=== PATIENT | male | born 1950 | race Caucasian/White ===

== ENCOUNTER 2016-01-19 07:09 | Outpatient (RCR) | payer MEDICARE, OTHER ==
--- OUTSIDE RECORDS SUMMARY | 2016-01-14 14:55 | XMS REPORT | Continuity of Care Document ---
Author Author [facility] Organization [facility] Address Unknown Phone Unavailable Care Team Providers Care Counter Attendant Name Role Phone AASHISH CEDENO MD PCP Insurance Providers Payer Name Policy Number Subscriber Name Relationship Wps Medicare [id number] Jen Hennessy 18 Self / Same As Patient Comm Crossover Enter Ins Name [id number] Jen Hennessy 18 Self / Same As Patient Advance Directives Directive Response Recorded Date/Time Advance Directives No 12/19/15 9:40am Health Care Power of Feed Mill Supervisor No 12/19/15 9:40am Organ Donor No 12/19/15 9:40am Resuscitation Status Full Code 12/19/15 9:40am Problems Active Problems Medical Problem Onset Date Status Generalized weakness Unknown Acute Postoperative pain Unknown Acute Ureteral stone with hydronephrosis Unknown Acute Medications Current Home Medications Medication Dose Units Route Directions Days/Qty Instructions Start Date Bimatoprost 2.5 Ml 2 Drops Each Eye Bedtime 07/17/13 Tamsulosin Hcl 0.4 Mg 0.4 Mg Oral Daily 14 12/17/15 Cephalexin 500 Mg 500 Mg Oral Three Times A Day 12/17/15 Hydrocodone/Acetaminophen 1 Each 1 Each Oral Every 6 Hours 12/17/15 Past Home Medications Medication Directions Ordered Status Omeprazole 20 Mg Capsule.dr, 0 Mg Oral Daily@07 07/18/13 Discontinued Hydrocodone/Acetaminophen 1 Each Tablet, 1-2 Each Oral Every 6 Hours Discontinued Sulfamethoxazole/Trimethoprim 1 Each Tablet, 1 Each Oral Twice A Day Discontinued Social History Social History Problem Response Recorded Date/Time Alcohol Use Denies Use 07/05/2015 4:53pm Recreational Drug Use No 07/05/2015 4:53pm Recent Foreign Travel No 07/17/2013 3:13pm Recent Infectious Disease Exposure No 07/17/2013 3:13pm Hospitalization with Isolation Denies 07/18/2013 11:40am Sexually Transmitted Disease No 12/19/2015 9:40am HIV/AIDS No 12/19/2015 9:40am Smoking Status Former Smoker 12/19/2015 9:40am Do you dip or chew tobacco? No 07/05/2015 4:53pm Recent Hopitalizations No 12/19/2015 9:40am Sexually Transmitted Disease No 12/19/2015 9:40am Hospitalization with Isolation Denies 07/18/2013 11:40am Query Response Start Date Stop Date Smoking Status Former Smoker 07/25/1967 Hospital Discharge Instructions No hospital discharge instructions. Plan of Care Discharge Date 12/19/15 10:10am Prescriptions See Medication Section Functional Status No functional status results. Allergies, Adverse Reactions, Alerts Allergen Type Severity Reaction Status Last Updated Epinephrine Allergy Severe ANAPHYLAXIS Active 07/03/15 Immunizations No immunization records. Vital Signs Acute Vital Signs Vital Response Date/Time Temperature (Fahrenheit) 97.2 degrees F (97.6 - 99.5) 12/17/2015 4:05pm Temperature (Calculated Celsius) 36.62578 degrees C (36.4 - 37.5) 12/17/2015 4:05pm Pulse Rate (adult) 60 bpm (60 - 90) 12/19/2015 9:40am Respiratory Rate 18 bpm (12 - 24) 12/17/2015 6:30pm O2 Sat by Pulse Oximetry 93 % (88 - 100) 12/19/2015 9:40am Blood Pressure 142/85 mm Hg 12/19/2015 9:40am Blood Pressure Mean 104 mm Hg 12/19/2015 9:40am Pain Numeric Pain Scale 0-No Pain 12/19/2015 9:40am Height (Feet) 5 feet 12/19/2015 9:39am Height (Inches) 5.00 inches 12/19/2015 9:39am Height (Calculated Centimeters) 165.210476 cm 12/19/2015 9:39am Weight (Pounds) 234 pounds 12/19/2015 9:39am Weight (Ounces) 9.0 oz 12/19/2015 9:39am Weight (Calculated Grams) 799125.76 gm 12/19/2015 9:39am Weight (Calculated Kilograms) 106.865648 kilograms 12/19/2015 9:39am Calculated BMI 39.0 12/19/2015 9:39am Capillary Refill Capillary Refill Less Than 3 Seconds 12/17/2015 4:05pm Results Laboratory Results Test Name Result Units Flags Reference Collection Date/Time Result Date/ Time Comments White Blood Count 11.2 10^3/uL H 4.3-11.0 12/17/2015 4:35pm 12/17/2015 4: 45pm Red Blood Count 4.91 10^6/uL 4.35-5.85 12/17/2015 4:35pm 12/17/2015 4: 45pm Hemoglobin 15.0 G/DL 13.3-17.7 12/17/2015 4:35pm 12/17/2015 4:45pm Hematocrit 43 % 40-54 12/17/2015 4:35pm 12/17/2015 4:45pm Mean Corpuscular Volume 88 FL 80-99 12/17/2015 4:35pm 12/17/2015 4: 45pm Mean Corpuscular Hemoglobin 31 PG 25-34 12/17/2015 4:35pm 12/17/2015 4: 45pm Mean Corpuscular Hemoglobin Concent 35 G/DL 32-36 12/17/2015 4:35pm 03/2015 4:45pm Red Cell Distribution Width 13.0 % 10.0-14.5 12/17/2015 4:35pm 2015 4:45pm Platelet Count 150 10^3/uL 130-400 12/17/2015 4:35pm 12/17/2015 4:45pm Mean Platelet Volume 11.0 FL H 7.4-10.4 12/17/2015 4:35pm 12/17/2015 4: 45pm Neutrophils (%) (Auto) 81 % H 42-75 12/17/2015 4:35pm 12/17/2015 4:45pm Lymphocytes (%) (Auto) 9 % L 12-44 12/17/2015 4:35pm 12/17/2015 4:45pm Monocytes (%) (Auto) 8 % 0-12 12/17/2015 4:35pm 12/17/2015 4:45pm Eosinophils (%) (Auto) 2 % 0-10 12/17/2015 4:35pm 12/17/2015 4:45pm Basophils (%) (Auto) 0 % 0-10 12/17/2015 4:35pm 12/17/2015 4:45pm Neutrophils # (Auto) 9.0 X 10^3 H 1.8-7.8 12/17/2015 4:35pm 12/17/2015 4: 45pm Lymphocytes # (Auto) 1.0 X 10^3 1.0-4.0 12/17/2015 4:35pm 12/17/2015 4: 45pm Monocytes # (Auto) 0.9 X 10^3 0.0-1.0 12/17/2015 4:35pm 12/17/2015 4: 45pm Eosinophils # (Auto) 0.2 10^3/uL 0.0-0.3 12/17/2015 4:35pm 12/17/2015 4 :45pm Basophils # (Auto) 0.0 10^3/uL 0.0-0.1 12/17/2015 4:35pm 12/17/2015 4: 45pm Urine Color YELLOW 12/17/2015 4:06pm 12/17/2015 5:23pm Urine Clarity CLEAR 12/17/2015 4:06pm 12/17/2015 5:23pm Urine pH 5 5-9 12/17/2015 4:06pm 12/17/2015 5:23pm Urine Specific [place] 1.020 1.016-1.022 12/17/2015 4:06pm 2015 5:23pm Urine Protein NEGATIVE NEGATIVE 12/17/2015 4:06pm 12/17/2015 5:23pm Urine Glucose (UA) NEGATIVE NEGATIVE 12/17/2015 4:06pm 12/17/2015 5: 23pm Urine RBC (Auto) 3+ * NEGATIVE 12/17/2015 4:06pm 12/17/2015 5:23pm Urine Ketones NEGATIVE NEGATIVE 12/17/2015 4:06pm 12/17/2015 5:23pm Urine Nitrite NEGATIVE NEGATIVE 12/17/2015 4:06pm 12/17/2015 5:23pm Urine Bilirubin NEGATIVE NEGATIVE 12/17/2015 4:06pm 12/17/2015 5: 23pm Urine Urobilinogen NORMAL MG/DL NORMAL 12/17/2015 4:06pm 12/17/2015 5: 23pm Urine Leukocyte Esterase NEGATIVE NEGATIVE 12/17/2015 4:06pm 2015 5:23pm Urine RBC 5-10 /HPF * 12/17/2015 4:06pm 12/17/2015 5:23pm Urine WBC RARE /HPF 12/17/2015 4:06pm 12/17/2015 5:23pm Urine Bacteria NEGATIVE /HPF 12/17/2015 4:06pm 12/17/2015 5:23pm Urine Crystals NONE /LPF 12/17/2015 4:06pm 12/17/2015 5:23pm Urine Casts NONE /LPF 12/17/2015 4:06pm 12/17/2015 5:23pm Urine Mucus SMALL /LPF * 12/17/2015 4:06pm 12/17/2015 5:23pm Urine Culture Indicated NO 12/17/2015 4:06pm 12/17/2015 5:23pm Sodium Level 140 MMOL/L 135-145 12/17/2015 4:30pm 12/17/2015 5:06pm Potassium Level 4.1 MMOL/L 3.6-5.0 12/17/2015 4:30pm 12/17/2015 5:06pm Chloride Level 108 MMOL/L H 98-107 12/17/2015 4:30pm 12/17/2015 5:06pm Carbon Dioxide Level 24 MMOL/L 21-32 12/17/2015 4:30pm 12/17/2015 5: 06pm Anion Gap 8 MMOL/L 5-14 12/17/2015 4:30pm 12/17/2015 5:06pm Blood Urea Nitrogen 20 MG/DL H 7-18 12/17/2015 4:30pm 12/17/2015 5:06pm Creatinine 1.08 MG/DL 0.60-1.30 12/17/2015 4:30pm 12/17/2015 5:06pm BUN/Creatinine Ratio 19 12/17/2015 4:30pm 12/17/2015 5:06pm Estimat Glomerular Filtration Rate > 60 12/17/2015 4:30pm 2015 5:06pm GFR INTERPRETIVE DATA UNITS FOR ESTIMATED GFR (eGFR): mL/min/1.73 M2 REFERENCE RANGE FOR ESTIMATED GFR (eGFR) eGFR NORMAL eGFR >60 MODERATELY DECREASED eGFR 30-59 SEVERLY DECREASED eGFR 15-29 KIDNEY FAILURE <15 (OR DIALYSIS) Glucose Level 100 MG/DL 70-105 12/17/2015 4:30pm 12/17/2015 5:06pm Calcium Level 8.8 MG/DL 8.5-10.1 12/17/2015 4:30pm 12/17/2015 5:06pm Total Bilirubin 0.3 MG/DL 0.1-1.0 12/17/2015 4:30pm 12/17/2015 5:06pm Alkaline Phosphatase 65 U/L 40-136 12/17/2015 4:30pm 12/17/2015 5:06pm Aspartate Amino Transf (AST/SGOT) 18 U/L 5-34 12/17/2015 4:30pm 2015 5:06pm Alanine Aminotransferase (ALT/SGPT) 17 U/L 0-55 12/17/2015 4:30pm 12/16 5:06pm Total Protein 6.4 G/DL 6.4-8.2 12/17/2015 4:30pm 12/17/2015 5:06pm Albumin 3.9 G/DL 3.2-4.5 12/17/2015 4:30pm 12/17/2015 5:06pm Procedures No known history of procedures. Encounters Encounter Location Arrival/Admit Date Discharge/Depart Date Attending Provider Registered Clinic [facility] 12/19/15 9:31am CHACHO BONILLA MD Registered Clinic [facility] 12/18/15 1:12pm CHACHO BONILLA MD Departed Emergency Room [facility] 12/17/15 3:56pm 12/16 6:30pm ROCHELLE ARIZA MD
--- OUTSIDE RECORDS SUMMARY | 2016-01-14 15:14 | XMS REPORT | Continuity of Care Document ---
Author Author [facility] [address] [facility] Organization [facility] [address] Address Unknown Phone Unavailable Care Team Providers Care Return To Factory Clerk Name Role Phone AASHISH CEDENO MD PCP Insurance Providers Payer Name Policy Number Subscriber Name Relationship Wps Medicare [id number] Jen Hennessy 16 Self / Same As Patient Comm Crossover Enter Ins Name [id number] Jen Hennessy 16 Self / Same As Patient Advance Directives Directive Response Recorded Date/Time Advance Directives No 12/19/15 9:40am Health Care Power of Government Relations Director No 12/19/15 9:40am Organ Donor No 12/19/15 [...] - 99.5) 12/17/2015 4:05pm Temperature (Calculated Celsius) 36.58347 degrees C (36.4 - 37.5) 12/17/2015 4:05pm [...] 5.00 inches 12/19/2015 9:39am Height (Calculated Centimeters) 165.800960 cm 12/19/2015 9:39am Weight (Pounds) 234 pounds 12/19/2015 9:39am Weight (Ounces) 9.0 oz 12/19/2015 9:39am Weight (Calculated Grams) 182687.76 gm 12/19/2015 9:39am Weight (Calculated Kilograms) 106.198045 kilograms 12/19/2015 9:39am Calculated BMI 39.0 12/19/2015 [...] 5-9 12/17/2015 4:06pm 12/17/2015 5:23pm Urine Specific [place] 1.020 1.016-1.022 12/17/2015 4:06pm 2015 5:23pm Urine [...] Discharge/Depart Date Attending Provider Registered Clinic [facility] [address] 12/19/15 9:31am CHACHO BONILLA MD Registered Clinic [facility] [address] 12/18/15 1:12pm CHACHO BONILLA MD Departed Emergency Room [facility] [address] 12/17/15 3:56pm 12/16 6:30pm ROCHELLE ARIZA MD
[2016-01-14 15:36] LABS: ANION GAP 8 MMOL/L (5-14); BLOOD UREA NITROGEN 15 MG/DL (7-18); BUN/CREATININE RATIO 15; CARBON DIOXIDE 23 MMOL/L (21-32); CHLORIDE 107 MMOL/L (98-107); CREATININE SERUM 0.98 MG/DL (0.60-1.30); GFR ESTIMATED > 60; GLUCOSE 88 MG/DL (70-105); PHOSPHORUS 3.7 MG/DL (2.3-4.7); POTASSIUM 4.1 MMOL/L (3.6-5.0); SODIUM 138 MMOL/L (135-145); URIC ACID 6.1 MG/DL (2.6-7.2)
[2016-01-15 06:29] LABS: CALCIUM PARA THYROID HORMONE 9.1 mg/dL (8.5-10.5)
[~2016-01-19 07:09] MED LIST: BIMA2.5D4 OU; CEPH500T PO; HYDR-3730 PO; HYDR-3816 PO; OMEP-10 PO; SULF1TAB35 PO; TAMS0.4C98 PO
[2016-01-22 22:39] LABS: STONE RISK AMMONIUM 23 mEq/24hr (14-62); STONE RISK BRUSHITE 1.09 (< 2.00); STONE RISK CA OXALATE 1.58 (< 2.00); STONE RISK CALCIUM 159 mg/day (< 250); STONE RISK CITRATE 874 mg/day (> 320); STONE RISK CREATININE 1948 mg/day (800-2000); STONE RISK MAGNESIUM 152 mg/day (> 60); STONE RISK OXALATE 39 mg/day (< 45); STONE RISK PATIENT CONDITION Low urine volume; STONE RISK PH 5.8 (5.5-7.0); STONE RISK PHOSPHOROUS 1263 mg/day (< 1100); STONE RISK POTASSIUM 52 mEq/24hr (19-135); STONE RISK SODIUM 197 mEq/24hr (< 200); STONE RISK SODIUM URATES 3.83 (< 2.00); STONE RISK STRUVITE 0.37 (< 75.00); STONE RISK SULFITE 18 mmol/day (< 30); STONE RISK TOTAL VOLUME 1.43 L/day (> 2.00); STONE RISK URIC ACID 656 mg/day (< 700); STONE RISK URIC ACID SAT 2.66 (< 2.00)
[2016-01-23 08:06] LABS: STONE RISK SUSPECTED PROBLEM Uric Acid Lithiasis
== END 2016-04-13 | disposition home or self-care (01) ==
LOC: LAB 07:09
PROVIDERS: ATTEND Urology
DX: N20.9 Urinary calculus, unspecified (principal)
CPT/HCPCS: 36415; 80048; 82140; 82340; 82507; 82570; 83735; 83945; 83970; 83986; 84100; 84105; 84133; 84300; 84392; 84550; 84560

== ENCOUNTER → 2016-04-07 | Outpatient (CLI) | payer MEDICARE, OTHER ==
--- OUTSIDE RECORDS SUMMARY | 2016-04-07 12:15 | XMS REPORT | Continuity of Care Document ---
Author Author [facility] Organization [facility] Address Unknown Phone Unavailable Care Team Providers Care Arm Maker Name Role Phone AASHISH CEDENO MD PCP Insurance Providers Payer Name Policy Number Subscriber Name Relationship Wps Medicare [id number] Jen Hennessy 16 Self / Same As Patient Comm Crossover Enter Ins Name [id number] Jen Hennessy 16 Self / Same As Patient Advance Directives Directive Response Recorded Date/Time Advance Directives No 12/19/15 9:40am Health Care Power of Senior Economist No 12/19/15 9:40am Organ Donor No 12/19/15 [...] - 99.5) 12/17/2015 4:05pm Temperature (Calculated Celsius) 36.57799 degrees C (36.4 - 37.5) 12/17/2015 4:05pm [...] 5.00 inches 12/19/2015 9:39am Height (Calculated Centimeters) 165.122955 cm 12/19/2015 9:39am Weight (Pounds) 234 pounds 12/19/2015 9:39am Weight (Ounces) 9.0 oz 12/19/2015 9:39am Weight (Calculated Grams) 682128.76 gm 12/19/2015 9:39am Weight (Calculated Kilograms) 106.397823 kilograms 12/19/2015 9:39am Calculated BMI 39.0 12/19/2015 [...] 5-9 12/17/2015 4:06pm 12/17/2015 5:23pm Urine Specific [place] 1.020 1.016-1.022 12/17/2015 4:06pm 2015 5:23pm Urine [...] Discharge/Depart Date Attending Provider Registered Clinic [facility] 12/19/15 9:31am CHACHO BONILLA MD Registered Clinic [facility] 12/18/15 1:12pm CHACHO BONILLA MD Departed Emergency Room [facility] 12/17/15 3:56pm 12/16 6:30pm ROCHELLE ARIZA MD
--- NOTE | 2016-04-07 15:29 | Diagnostic Imaging Report ---
PROCEDURE: MRI left upper extremity without contrast. TECHNIQUE: Multiplanar, multisequence non contrast-enhanced MRI of the left upper extremity was accomplished. INDICATION: Left shoulder pain. COMPARISON: There are no previous studies available for comparison. FINDINGS: This exam is less than optimal due to motion artifact. On the T2 coronal series, there is a sizable defect involving the anterior third of the insertion of the rotator cuff. This area measures approximately 16 x 7 x 13 mm in maximum transverse longitudinal and AP dimensions. This appearance would be consistent with a full-thickness tear. There is retraction and bunching of the supraspinatus muscle in this area. There is also a minute 1 x 2 x 2 mm area of altered signal along the posterior attachment of the supraspinatus muscle. This may represent a small partial tear. The supraspinatus muscle is otherwise intact. There is hypertrophy of the acromioclavicular joint and this does result in rather severe narrowing of the outlet for the supraspinatus muscle. The axial images do suggest that the anterior labrum is torn. The biceps tendon and the subscapularis tendon are intact. There is no abnormal signal arising from the osseous structures to suggest bone edema or fracture. There is cystic degeneration of the greater tuberosity of the humeral head. There is a very small joint effusion present. IMPRESSION: 1. There is a full-thickness tear involving the anterior third of the rotator cuff with bunching of the supraspinatus muscle. There may also be a minute tear of the posterior attachment of the rotator cuff. The supraspinatus muscle itself is not fully retracted. 2. There is hypertrophy of the acromioclavicular joint and this does result in fairly severe narrowing of the outlet for the supraspinatus muscle. 3. The labrum is torn anteriorly. 4. There is no evidence for an acute bony abnormality but there is degenerative disease involving the greater tuberosity. Dictated by: Dictated on workstation # [id number]
== END ==
LOC: RAD 12:11
PROVIDERS: ATTEND Orthopaedic Surgery
DX: M25.512 Pain in left shoulder (principal)
CPT/HCPCS: 73221

== ENCOUNTER → 2016-06-09 | Outpatient (CLI) | payer MEDICARE, OTHER ==
--- NOTE | 2016-06-09 12:05 | Diagnostic Imaging Report ---
PROCEDURE: US Carotid Duplex Bilateral. TECHNIQUE: Multiple real-time grayscale images were obtained over the carotid arteries in various projections bilaterally. Additional duplex Doppler and color Doppler images were also obtained. INDICATION: Facial numbness. Vertigo. FINDINGS: There is mild atherosclerotic plaque at the carotid bifurcation bilaterally. Color flow demonstrates patency of the common, internal and external carotid arteries bilaterally. There is demonstrated antegrade flow in the vertebral arteries. Peak systolic velocities in the right ICA are 34, 45, and 51 cm/s and on the left 33, 48, and 46 cm/s. ICA/CCA ratios are up to 0.9 on the right and 0.8 cm on the left. IMPRESSION: Mild intimal plaque with no evidence of high-grade carotid artery stenosis. Dictated by: Dictated on workstation # [id number]
== END ==
LOC: RAD 08:22
PROVIDERS: ATTEND Internal Medicine
DX: R20.0 Anesthesia of skin (principal); R42 Dizziness and giddiness
CPT/HCPCS: 93880

== ENCOUNTER 2016-08-06 12:41 | Outpatient (RCR) | payer MEDICARE, OTHER | END 2016-08-12 13:22 | disposition home or self-care (01) | PROVIDERS: ATTEND Orthopaedic Surgery | DX: M25.512 Pain in left shoulder (principal) ==

== ENCOUNTER 2016-09-23 08:34 | Outpatient (RCR) | payer MEDICARE, OTHER | END 2016-09-23 11:12 | disposition home or self-care (01) | PROVIDERS: ATTEND Internal Medicine | DX: M54.6 Pain in thoracic spine (principal); M54.5 Low back pain ==

== ENCOUNTER 2016-10-11 14:08 | Emergency (ER) | payer MEDICARE, OTHER ==
[~2016-10-11] VITALS: Ht 167.6 cm; Wt 99.8 kg
[2016-10-11 16:11] LABS: BASOPHILS % (AUTO) 0 % (0-10); EOSINOPHILS # (AUTO) 0.3 10^3/uL (0.0-0.3); EOSINOPHILS % (AUTO) 4 % (0-10); LYMPHOCYTES # (AUTO) 1.8 X 10^3 (1.0-4.0); LYMPHOCYTES % (AUTO) 22 % (12-44); MEAN CORPUSCULAR HEMOGLOBIN 30 PG (25-34); MEAN CORPUSCULAR HGB CONC 34 G/DL (32-36); MEAN CORPUSCULAR VOLUME 89 FL (80-99); MEAN PLATELET VOLUME 10.8 FL (7.4-10.4); MONOCYTES # (AUTO) 0.6 X 10^3 (0.0-1.0); MONOCYTES % (AUTO) 8 % (0-12); NEUTROPHILS # (AUTO) 5.5 X 10^3 (1.8-7.8); NEUTROPHILS % (AUTO) 67 % (42-75); PLATELET COUNT 145 10^3/uL (130-400); RED BLOOD COUNT 4.79 10^6/uL (4.35-5.85); RED CELL DISTRIBUTION WIDTH 13.4 % (10.0-14.5); WHITE BLOOD COUNT 8.3 10^3/uL (4.3-11.0)
[2016-10-11 16:33] LABS: ALANINE AMINOTRANSFERASE 15 U/L (0-55); ALBUMIN 3.8 GM/DL (3.2-4.5); ANION GAP 9 MMOL/L (5-14); ASPARTATE AMINO TRANSFERASE 19 U/L (5-34); BILIRUBIN,TOTAL 0.3 MG/DL (0.1-1.0); BLOOD UREA NITROGEN 21 MG/DL (7-18); BUN/CREATININE RATIO 22; CALCIUM 8.8 MG/DL (8.5-10.1); CARBON DIOXIDE 22 MMOL/L (21-32); CHLORIDE 110 MMOL/L (98-107); CREATININE SERUM 0.97 MG/DL (0.60-1.30); GFR ESTIMATED > 60; GLUCOSE 95 MG/DL (70-105); MAGNESIUM 2.1 MG/DL (1.8-2.4); SODIUM 141 MMOL/L (135-145); TOTAL PROTEIN 6.3 GM/DL (6.4-8.2)
[2016-10-11 16:39] LABS: TROPONIN I < 0.30 NG/ML (<0.30)
[2016-10-11 16:59] LABS: KETONES,URINE NEGATIVE (NEGATIVE); NITRITE,URINE NEGATIVE (NEGATIVE); PH,URINE 6 (5-9); PROTEIN,URINE 1+ (NEGATIVE)
[2016-10-11 17:00] LABS: BILIRUBIN,URINE NEGATIVE (NEGATIVE); LEUKOCYTE ESTERASE ,URINE NEGATIVE (NEGATIVE); UROBILINOGEN,URINE NORMAL (NORMAL)
[2016-10-11 17:06] LABS: WBC,URINE RARE /HPF
[2016-10-11] MEDS ORDERED: NS 100 ML (IVPB) BAG IV ONE (17:15)
[2016-10-11] MEDS ORDERED: IOHEXOL 350 MG/ML 100 ML (OMNIPAQUE 350) VIAL IV ONE (17:15)
--- NOTE | 2016-10-11 17:38 | Diagnostic Imaging Report ---
INDICATION: Dizziness and syncope. COMPARISON: None. FINDINGS: Two views of the chest are obtained. Heart size is normal. The pulmonary vessels appear unremarkable. There is no pneumothorax, mediastinal widening, or pleural fluid demonstrated. The lungs are clear. There are degenerative changes in the spine. IMPRESSION: No acute abnormality is seen. Dictated by: Dictated on workstation # [id number]
--- NOTE | 2016-10-11 17:45 | ED General ---
General Chief Complaint: Dizziness/Syncope Stated Complaint: DIZZY Nursing Triage Note: pt reports he has had dizzy spells for one year and recently started having increasing confusion. Nursing Sepsis Screen: No Definite Risk Source of Information: Patient Exam Limitations: No Limitations Allergies and Home Medications Allergies Coded Allergies: epinephrine (Unverified Allergy, Severe, ANAPHYLAXIS, 07/03/15) PER PT, HAPPENED DURING PREVIOUS SURGERY IN 2004 Home Medications Bimatoprost 2.5 Ml Drops, 2 DROPS OU HS, (Reported) Fluticasone Propionate 9.9 Ml [place].susp, 2 SPRAYS NSEACH DAILY, #1 Ref 11 Prescribed by: BABATUNDE MARCELO on 10/11/16 1847 Hydrocodone/Acetaminophen 1 Each Tablet, 1 EACH PO Q6H, #14 Prescribed by: ROCHELLE ARIZA on 12/17/15 1813 Meclizine HCl 25 Mg Tablet, 25 MG PO QID PRN for DIZZINESS, #30 Prescribed by: BABATUNDE MARCELO on 10/11/16 1847 Tamsulosin HCl 0.4 Mg Cap, 0.4 MG PO DAILY, #14 Ref 0 Prescribed by: ROCHELLE ARIZA on 12/17/15 1813 Past Gztlduv-Krgwhz-Hxwomk Hx Patient Social History Alcohol Use: Denies Use Recreational Drug Use: No Smoking Status: Former Smoker Type Used: Cigarettes Former Smoker, Quit: July 02, 1967 Recent Foreign Travel: No Contact w/Someone Who Travel: No Recent Infectious Disease Expo: No Recent Hopitalizations: No Physical Abuse: No Sexual Abuse: No Mistreated: No Fear: No Immunizations Up To Date Tetanus Booster (TDap): Unknown Seasonal Allergies Seasonal Allergies: No Surgeries History of Surgeries: Yes (Right Rototar Cuff, Hemorrhoids Removed, Kidney Stone ) Surgeries: Gallbladder Respiratory History of Respiratory Disorde: Yes Respiratory Disorders: Sleep Apnea Currently Using CPAP: Yes Cardiovascular History of Cardiac Disorders: No Neurological History of Neurological Disord: No Reproductive System Hx Reproductive Disorders: No Sexually Transmitted Disease: No HIV/AIDS: No Genitourinary History of Genitourinary Disor: Yes Genitourinary Disorders: Kidney Stones Gastrointestinal History of Gastrointestinal Di: Yes Gastrointestinal Disorders: Chronic Constipation, Gall Bladder Disease Musculoskeletal History of Musculoskeletal Dis: No Endocrine History of Endocrine Disorders: No HEENT History of HEENT Disorders: Yes HEENT Disorders: Glaucoma Loss of Vision: Denies Hearing Impairment: Denies Cancer History of Cancer: No Psychosocial History of Psychiatric Problem: No Suicide Risk Score: 1 Integumentary History of Skin or Integumenta: No Blood Transfusions History of Blood Disorders: No Adverse Reaction to a Blood Tr: No Family Medical History Significant Family History: No Pertinent Family Hx Physical Exam Vital Signs Vital Sign - Last 12Hours 10/11/16 14:25 Temp 98.0 Pulse 68 Resp 20 B/P (MAP) 148/84 Pulse Ox 95 Capillary Refill : Less Than 3 Seconds Progress/Results/Core Measures Results/Orders Lab Results Laboratory Tests Test 10/11/16 16:04 10/11/16 16:49 Range/Units White Blood Count 8.3 4.3-11.0 10^3/uL Red Blood Count 4.79 4.35-5.85 10^6/uL Hemoglobin 14.5 13.3-17.7 G/DL Hematocrit 43 40-54 % Mean Corpuscular Volume 89 80-99 FL Mean Corpuscular Hemoglobin 30 25-34 PG Mean Corpuscular Hemoglobin Concent 34 32-36 G/DL Red Cell Distribution Width 13.4 10.0-14.5 % Platelet Count 145 130-400 10^3/uL Mean Platelet Volume 10.8 H 7.4-10.4 FL Neutrophils (%) (Auto) 67 42-75 % Lymphocytes (%) (Auto) 22 12-44 % Monocytes (%) (Auto) 8 0-12 % Eosinophils (%) (Auto) 4 0-10 % Basophils (%) (Auto) 0 0-10 % Neutrophils # (Auto) 5.5 1.8-7.8 X 10^3 Lymphocytes # (Auto) 1.8 1.0-4.0 X 10^3 Monocytes # (Auto) 0.6 0.0-1.0 X 10^3 Eosinophils # (Auto) 0.3 0.0-0.3 10^3/uL Basophils # (Auto) 0.0 0.0-0.1 10^3/uL Sodium Level 141 135-145 MMOL/L Potassium Level 4.0 3.6-5.0 MMOL/L Chloride Level 110 H 98-107 MMOL/L Carbon Dioxide Level 22 21-32 MMOL/L Anion Gap 9 5-14 MMOL/L Blood Urea Nitrogen 21 H 7-18 MG/DL Creatinine 0.97 0.60-1.30 MG/DL Estimat Glomerular Filtration Rate > 60 BUN/Creatinine Ratio 22 Glucose Level 95 70-105 MG/DL Calcium Level 8.8 8.5-10.1 MG/DL Magnesium Level 2.1 1.8-2.4 MG/DL Total Bilirubin 0.3 0.1-1.0 MG/DL Aspartate Amino Transf (AST/SGOT) 19 5-34 U/L Alanine Aminotransferase (ALT/SGPT) 15 0-55 U/L Alkaline Phosphatase 65 40-136 U/L Troponin I < 0.30 <0.30 NG/ML Total Protein 6.3 L 6.4-8.2 GM/DL Albumin 3.8 3.2-4.5 GM/DL Urine Color YELLOW Urine Clarity SLIGHTLY CLOUDY Urine pH 6 5-9 Urine Specific [place] 1.020 1.016-1.022 Urine Protein 1+ H NEGATIVE Urine Glucose (UA) NEGATIVE NEGATIVE Urine Ketones NEGATIVE NEGATIVE Urine Nitrite NEGATIVE NEGATIVE Urine Bilirubin NEGATIVE NEGATIVE Urine Urobilinogen NORMAL NORMAL MG/DL Urine Leukocyte Esterase NEGATIVE NEGATIVE Urine RBC (Auto) NEGATIVE NEGATIVE Urine RBC NONE /HPF Urine WBC RARE /HPF Urine Crystals NONE /LPF Urine Leucine Crystals /LPF Urine Bacteria NEGATIVE /HPF Urine Casts NONE /LPF Urine Mucus NEGATIVE /LPF Urine Culture Indicated NO My Orders Orders - BABATUNDE SÁNCHEZ MD Cbc With Automated Diff (10/11/16 15:32) Comprehensive Metabolic Panel (10/11/16 15:32) Magnesium (10/11/16 15:32) Troponin I (10/11/16 15:32) Ua Culture If Indicated (10/11/16 15:32) Saline Lock/Iv-Start (10/11/16 15:32) Ekg Tracing (10/11/16 15:32) Monitor-Rhythm Ecg Trace Only (10/11/16 15:32) Chest Pa/Lat (2 View) (10/11/16 15:32) Iohexol Injection (Omnipaque 350 Mg/Ml 1 (10/11/16 17:15) Ns (Ivpb) (Sodium Chloride 0.9% Ivpb Bag (10/11/16 17:15) Ct Angio Head/Neck (10/11/16 17:12) Medications Given in ED Current Medications Medications Dose Ordered Sig/Ziyad Route Start Time Stop Time Status Last Admin Dose Admin Iohexol 100 ml ONCE ONCE IV 10/11/16 17:15 10/11/16 17:42 DC 10/11/16 17:33 85 ML Sodium Chloride 100 ml ONCE ONCE IV 10/11/16 17:15 10/11/16 17:42 DC 10/11/16 17:33 80 ML Vital Signs/I&O Vital Sign - Last 12Hours 10/11/16 14:25 Temp 98.0 Pulse 68 Resp 20 B/P (MAP) 148/84 Pulse Ox 95 Blood Pressure Mean: 105 Diagnostic Imaging Diagonstic Imaging: Xray Plain Films/CT/US/NM/MRI: chest Comments Chest x-ray viewed by me and report reviewed. See report below: NAME: [facility] REC#: [id number] PT STATUS: REG ER : 1950 PHYSICIAN: BABATUNDE SÁNCHEZ MD ADMIT DATE: 10/11/16/ER Draft Date of Exam:10/11/16 CHEST PA/LAT (2 VIEW) INDICATION: Dizziness and syncope. COMPARISON: None. FINDINGS: Two views of the chest are obtained. Heart size is normal. The pulmonary vessels appear unremarkable. There is no pneumothorax, mediastinal widening, or pleural fluid demonstrated. The lungs are clear. There are degenerative changes in the spine. IMPRESSION: No acute abnormality is seen. No significant interval change from the prior study. Dictated on workstation # [id number] Dict: 10/11/16 1731 Trans: 10/11/16 1735 [id number] Interpreted by: REESE THOMPSON DO Diagonstic Imaging: CT Plain Films/CT/US/NM/MRI: head Comments CT angio head and neck viewed by me and report reviewed. See report below: NAME: [facility] REC#: [id number] PT STATUS: REG ER : 1950 PHYSICIAN: BABATUNDE SÁNCHEZ MD ADMIT DATE: 10/11/16/ER Draft Date of Exam:10/11/16 CT ANGIO HEAD/NECK PROCEDURE: CT angiography of the head and CT angiography of the neck with and without contrast. TECHNIQUE: Contiguous noncontrast images were obtained from the skull base through the vertex. After intravenous contrast administration, helical CT angiography of the neck was performed. Source data was reformatted into multiple MIP projections. Delayed post contrast acquisition was also obtained. INDICATION: Dizziness and visual disturbance. CORRELATION is made to previous CT head dated 03/28/2015. CTA HEAD: Anterior, middle and posterior cerebral arteries are patent. There is no evidence of occlusion, stenosis or filling defect. 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 No filling defect is identified. There is no abnormal contrast enhancement. There is no evidence of intracranial hemorrhage or abnormal mass effect. No shift of midline structures is seen. IMPRESSION: Unremarkable CTA of the head. CTA NECK: There is mild atherosclerotic disease involving the common carotid arteries at the level of the carotid bulbs. No stenosis or occlusion is identified. No filling defect is appreciated. Internal carotid arteries are tortuous but otherwise patent. Both vertebral arteries are also patent throughout the neck. IMPRESSION: Very mild atherosclerotic disease without CTA evidence of hemodynamically significant stenosis or occlusion. Dictated on workstation # [id number] Dict: 10/11/16 1757 Trans: 10/11/16 1810 [facility] [id number] Interpreted by: SUNDEEP MOFFETT MD Departure Impression Impression: Primary Impression: Dizziness Additional Impressions: Disequilibrium Vision changes Disposition: 01 HOME, SELF-CARE Condition: Stable Departure-Patient Inst. Decision time for Depature: 18:30 Referrals: AASHISH CEDENO MD (PCP) Primary Care Physician Patient Instructions: Meniere Disease Add. Discharge Instructions: Follow-up with your primary care provider in the next 1 to 2 weeks. Consider further evaluation for other conditions such as Mnire's disease. Consider referral to an ENT specialist. Return to care if symptoms worsen. You may try meclizine for treatment of acute episodes of dizziness. Also consider treating allergies with an antihistamine such as loratadine or cetirizine. Use this in combination with Flonase nasal spray. Given this combination a trial of about 2 weeks to determine if it is effective. All discharge instructions reviewed with patient and/or family. Voiced understanding. Scripts Fluticasone Propionate (Flonase Allergy Relief) 9.9 Ml [place].susp 2 SPRAYS NSEACH DAILY, #1 SPRAY 11 Refills Prov: BABATUNDE SÁNCHEZ MD 10/11/16 Meclizine HCl (Meclizine HCl) 25 Mg Tablet 25 MG PO QID Y for DIZZINESS, #30 TAB Prov: BABATUNDE SÁNCHEZ MD 10/11/16 Copy Copies To 1: AASHISH CEDENO MD, JOSHUA T MD Oct 11, 2016 17:45
--- NOTE | 2016-10-11 18:08 | Diagnostic Imaging Report ---
PROCEDURE: CT angiography of the head and CT angiography of the neck with and without contrast. TECHNIQUE: Contiguous noncontrast images were obtained from the skull base through the vertex. After intravenous contrast administration, helical CT angiography of the neck was performed. Source data was reformatted into multiple MIP projections. Delayed post contrast acquisition was also obtained. INDICATION: Dizziness and visual disturbance. CORRELATION is made to previous CT head dated 03/28/2015. CTA HEAD: Anterior, middle and posterior cerebral arteries are patent. There is no evidence of occlusion, stenosis or filling defect. 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 No filling defect is identified. There is no abnormal contrast enhancement. There is no evidence of intracranial hemorrhage or abnormal mass effect. No shift of midline structures is seen. IMPRESSION: Unremarkable CTA of the head. CTA NECK: There is mild atherosclerotic disease involving the common carotid arteries at the level of the carotid bulbs. No stenosis or occlusion is identified. No filling defect is appreciated. Internal carotid arteries are tortuous but otherwise patent. Both vertebral arteries are also patent throughout the neck. IMPRESSION: Very mild atherosclerotic disease without CTA evidence of hemodynamically significant stenosis or occlusion. Dictated by: Dictated on workstation # [id number]
[2016-10-11] MEDS ORDERED: FLUT9.9S NSEACH (18:47)
[2016-10-11] MEDS ORDERED: MECL-106 PO (18:47)
[2016-10-11 18:58] VITALS: BP 132/72
== END 2016-10-11 18:58 | disposition home or self-care (01) ==
LOC: EDUNIT# 14:08 → ER 14:11
DX: E87.8 Other disorders of electrolyte and fluid balance, not elsewhere classified (principal); H53.9 Unspecified visual disturbance; K59.09 Other constipation; G47.30 Sleep apnea, unspecified; Z87.891 Personal history of nicotine dependence; Z87.19 Personal history of other diseases of the digestive system; Z87.442 Personal history of urinary calculi
CPT/HCPCS: 36415; 70496; 70498; 71020; 80053; 81000; 83735; 84484; 85025; 93005; 93041

== ENCOUNTER 2016-11-03 13:23 | Outpatient (CLI) | payer MEDICARE, OTHER ==
[~2016-11-03 13:23] MED LIST changes: +FLUT9.9S NSEACH; +MECL-106 PO
== END 2016-11-03 14:34 | disposition home or self-care (01) ==
LOC: SLEEP 13:23
PROVIDERS: ATTEND Nurse Practitioner Family
DX: G47.33 Obstructive sleep apnea (adult) (pediatric); J30.2 Other seasonal allergic rhinitis; E66.9 Obesity, unspecified

== ENCOUNTER 2017-01-13 18:04 | Inpatient (IN) | payer MEDICARE, OTHER ==
[2017-01-13] VITALS (9 sets, daily range): BP systolic 95–121; BP diastolic 57–75
[~2017-01-13] VITALS: Ht 167.6 cm; Wt 100.9 kg
[2017-01-13] MEDS ORDERED: NITROGLYCERIN 0.4 MG SL TABS BTL 25'S SL PRN ×2 (18:15→20:30)
[2017-01-13] MEDS ORDERED: ASPIRIN 81 MG CHEW (CHILDREN'S ASA) PO ONE (18:15)
--- NOTE | 2017-01-13 18:21 | ED Chest Pain ---
General Chief Complaint: Chest Pain Stated Complaint: CHEST PAIN Source: patient, spouse Exam Limitations: no limitations History of Present Illness Time seen by provider: 18:07 Initial Comments Patient presents to ER by private conveyance with chief complaint of for the past couple days she's been having intermittent pains in his left arm and numbness in his left jaw. They go away spontaneously. They Come with effort and at rest. Tonight however he started having a pain substernal in the middle it radiates to his back along with the numbness in his jaw and achiness in his left arm. He is having no nausea, sweats. He says he feels cold. He has no history of coronary artery disease. He's never had a stress test or cardiac catheterization. He does not smoke, drink or use recreational drugs. He does say he has a problem with his blood pressure but is not on any current medications at this time. He follows with Dr. Cruz typically. He denies any thyroid, cholesterol issues. No cough or shortness of breath. Allergies and Home Medications Allergies Coded Allergies: epinephrine (Unverified Allergy, Severe, ANAPHYLAXIS, 07/03/15) PER PT, HAPPENED DURING PREVIOUS SURGERY IN 2004 Home Medications Bimatoprost 2.5 Ml Drops, 2 DROPS OU HS, (Reported) Meclizine HCl 25 Mg Tablet, 25 MG PO QID PRN for DIZZINESS, #30 Prescribed by: BABATUNDE MARCELO on 10/11/16 184 Review of Systems Constitutional: No chills, No diaphoresis, No malaise EENTM: No Blurred Vision, No Double Vision, No Eye Pain Respiratory: Denies Shortness of Air Cardiovascular: See HPI, Chest Pain, Denies Edema, Denies Irregular Heart Rate , Palpitations, Denies Syncope Gastrointestinal: Denies Constipated, Denies Diarrhea, Denies Nausea Genitourinary: Denies Burning, Denies Discharge Musculoskeletal: No back pain, No joint pain Skin: No pruritus, No rash Psychiatric/Neurological: Denies Headache, Denies Numbness, Paresthesia (Left jaw) Past Gljlcct-Bzlyay-Otnpzv Hx Patient Social History Alcohol Use: Denies Use Recreational Drug Use: No Smoking Status: Former Smoker Type Used: Cigarettes Former Smoker, Quit: July 02, 1967 Recent Hopitalizations: No Immunizations Up To Date Tetanus Booster (TDap): Unknown Seasonal Allergies Seasonal Allergies: No Surgeries History of Surgeries: Yes (Right Rototar Cuff, Hemorrhoids Removed, Kidney Stone ) Surgeries: Gallbladder, Orthopedic, Renal Respiratory History of Respiratory Disorde: Yes Respiratory Disorders: Sleep Apnea Currently Using CPAP: Yes Cardiovascular History of Cardiac Disorders: No Neurological History of Neurological Disord: No Reproductive System Hx Reproductive Disorders: No Sexually Transmitted Disease: No HIV/AIDS: No Genitourinary History of Genitourinary Disor: Yes Genitourinary Disorders: Kidney Stones Gastrointestinal History of Gastrointestinal Di: Yes Gastrointestinal Disorders: Chronic Constipation, Gall Bladder Disease Musculoskeletal History of Musculoskeletal Dis: No Endocrine History of Endocrine Disorders: No HEENT History of HEENT Disorders: Yes HEENT Disorders: Glaucoma Loss of Vision: Denies Hearing Impairment: Denies Cancer History of Cancer: No Psychosocial History of Psychiatric Problem: No Integumentary History of Skin or Integumenta: No Blood Transfusions History of Blood Disorders: No Adverse Reaction to a Blood Tr: No Family Medical History Significant Family History: No Pertinent Family Hx, Cancer Physical Exam Vital Signs Vital Sign - Last 12Hours 01/13/17 18:04 Temp 97.9 Pulse 61 Resp 18 B/P (MAP) 137/79 (98) Pulse Ox 96 O2 Delivery Room Air Capillary Refill : General Appearance: WD/WN, Mild Distress HEENT: PERRL/EOMI, Pharynx Normal Neck: Full Range of Motion, Normal Inspection, Non Tender, Supple Respiratory: Chest Non Tender, Lungs Clear, Normal Breath Sounds Cardiovascular: Regular Rate, Rhythm, No Edema, No Gallop, No JVD, Normal Peripheral Pulses Gastrointestinal: Normal Bowel Sounds, Non Tender, Soft Extremity: Normal Capillary Refill, No Pedal Edema Neurologic/Psychiatric: Alert, Oriented x3 Skin: Normal Color, Warm/Dry Progress/Results/Core Measures Results/Orders Lab Results Laboratory Tests Test 01/13/17 18:17 Range/Units White Blood Count 9.3 4.3-11.0 10^3/uL Red Blood Count 4.97 4.35-5.85 10^6/uL Hemoglobin 15.1 13.3-17.7 G/DL Hematocrit 44 40-54 % Mean Corpuscular Volume 88 80-99 FL Mean Corpuscular Hemoglobin 30 25-34 PG Mean Corpuscular Hemoglobin Concent 35 32-36 G/DL Red Cell Distribution Width 12.9 10.0-14.5 % Platelet Count 143 130-400 10^3/uL Mean Platelet Volume 10.9 H 7.4-10.4 FL Neutrophils (%) (Auto) 67 42-75 % Lymphocytes (%) (Auto) 21 12-44 % Monocytes (%) (Auto) 9 0-12 % Eosinophils (%) (Auto) 3 0-10 % Basophils (%) (Auto) 0 0-10 % Neutrophils # (Auto) 6.2 1.8-7.8 X 10^3 Lymphocytes # (Auto) 1.9 1.0-4.0 X 10^3 Monocytes # (Auto) 0.8 0.0-1.0 X 10^3 Eosinophils # (Auto) 0.3 0.0-0.3 10^3/uL Basophils # (Auto) 0.0 0.0-0.1 10^3/uL Prothrombin Time 13.6 12.2-14.7 SEC INR Comment 1.0 0.8-1.4 Activated Partial Thromboplast Time 26 24-35 SEC Sodium Level 138 135-145 MMOL/L Potassium Level 4.0 3.6-5.0 MMOL/L Chloride Level 105 98-107 MMOL/L Carbon Dioxide Level 25 21-32 MMOL/L Anion Gap 8 5-14 MMOL/L Blood Urea Nitrogen 18 7-18 MG/DL Creatinine 1.05 0.60-1.30 MG/DL Estimat Glomerular Filtration Rate > 60 BUN/Creatinine Ratio 17 Glucose Level 106 H 70-105 MG/DL Calcium Level 8.5 8.5-10.1 MG/DL Magnesium Level 2.1 1.8-2.4 MG/DL Total Bilirubin 0.4 0.1-1.0 MG/DL Aspartate Amino Transf (AST/SGOT) 20 5-34 U/L Alanine Aminotransferase (ALT/SGPT) 19 0-55 U/L Alkaline Phosphatase 65 40-136 U/L Myoglobin 238.1 H 10.0-92.0 NG/ML Troponin I 0.43 *H <0.30 NG/ML Total Protein 6.5 6.4-8.2 GM/DL Albumin 3.7 3.2-4.5 GM/DL My Orders Orders - DAVINA HAIRSTON Cbc With Automated Diff (01/13/17 18:12) Magnesium (01/13/17 18:12) Chest 1 View, Ap/Pa Only (01/13/17 18:12) Ekg Tracing (01/13/17 18:12) Cardiac Profile 1 (01/13/17 18:12) Comprehensive Metabolic Panel (01/13/17 18:12) Myoglobin Serum (01/13/17 18:12) Protime With Inr (01/13/17 18:12) Partial Thromboplastin Time (01/13/17 18:12) O2 (01/13/17 18:12) Monitor-Rhythm Ecg Trace Only (01/13/17 18:12) Lipid Panel (01/14/17 06:00) Aspirin Chewable Tablet (Baby Aspirin Ch (01/13/17 18:15) Nitroglycerin 0.4 Mg Btl 25's (Nitrostat (01/13/17 18:15) Saline Lock/Iv-Start (01/13/17 18:12) Medications Given in ED Current Medications Medications Dose Ordered Sig/Ziyad Route Start Time Stop Time Status Last Admin Dose Admin Aspirin 324 mg ONCE ONCE PO 01/13/17 18:15 01/13/17 18:16 DC 01/13/17 18:20 324 MG Nitroglycerin 0.4 mg UD PRN SL 01/13/17 18:15 01/13/17 18:21 0.4 MG Vital Signs/I&O Vital Sign - Last 12Hours 01/13/17 18:04 Temp 97.9 Pulse 61 Resp 18 B/P (MAP) 137/79 (98) Pulse Ox 96 O2 Delivery Room Air ECG Initial ECG Impression Date: Jan 13, 2017 Initial ECG Impression Time: 18:10 Initial ECG Rate: 54 Initial ECG Rhythm: Normal Sinus Initial ECG Intervals: Normal Initial ECG Impression: Normal Initial ECG Comparisson: No Previous ECG Available Comment No T-wave elevation or depression. Diagnostic Imaging Diagonstic Imaging: Xray Plain Films/CT/US/NM/MRI: chest (1v) Comments [facility]IA [facility]. [place], [place] NAME: [facility] REC#: [id number] PT STATUS: REG ER : 1950 PHYSICIAN: DAVINA HAIRSTON MD ADMIT DATE: 01/13/17/ER Draft Date of Exam:01/13/17 CHEST 1 VIEW, AP/PA ONLY EXAM: CHEST 1 VIEW, AP/PA ONLY INDICATION: Chest pain. COMPARISON: Chest radiograph 10/11/2016. FINDINGS: Low lung volumes and technique markedly limits the examination. Cardiac silhouette is obscured. Normal central pulmonary vascularity. Mild left basilar atelectasis or infiltrate. No definite pleural effusion. No pneumothorax. No acute osseous findings. IMPRESSION: Limited exam. No acute cardiopulmonary findings. Dictated on workstation # [id number] Dict: 01/13/17 1849 Trans: 01/13/17 1851 [facility] [id number] Interpreted by: LUIS SOFIA MD Electronically signed by: Reviewed: Reviewed by Me Departure Communication (Admissions) Time/Spoke to Admitting Phy: 19:[address] Laureano discussed case lab imaging findings to see the patient. Time/Spoke to Consulting Phy: 18:56 Communication/Consulting Recommends 3 mg Plavix, Lovenox, 25 mg Toprol-XL 1 and nothing by mouth at midnight and he'll plan to catheter in the morning. Impression Impression: Primary Impression: NSTEMI, initial episode of care Disposition: ADMITTED INPATIENT Condition: Stable Admissions Decision to Admit Reason: Admit from ER (General) Decision to Admit/Date: Jan 13, 2017 Time/Decision to Admit Time: 18:58 Departure-Patient Inst. Referrals: AASHISH CRUZ MD (PCP/Family) Primary Care Physician Copy Copies To 1: AASHISH CRUZ MD Copies To 2: Jessi JIMENEZ MD, TITUS J Jan 13, 2017 18:21
[2017-01-13 18:24] LABS: BASOPHILS % (AUTO) 0 % (0-10); EOSINOPHILS # (AUTO) 0.3 10^3/uL (0.0-0.3); EOSINOPHILS % (AUTO) 3 % (0-10); LYMPHOCYTES # (AUTO) 1.9 X 10^3 (1.0-4.0); LYMPHOCYTES % (AUTO) 21 % (12-44); MEAN CORPUSCULAR HEMOGLOBIN 30 PG (25-34); MEAN CORPUSCULAR HGB CONC 35 G/DL (32-36); MEAN CORPUSCULAR VOLUME 88 FL (80-99); MEAN PLATELET VOLUME 10.9 FL (7.4-10.4); MONOCYTES # (AUTO) 0.8 X 10^3 (0.0-1.0); MONOCYTES % (AUTO) 9 % (0-12); NEUTROPHILS # (AUTO) 6.2 X 10^3 (1.8-7.8); NEUTROPHILS % (AUTO) 67 % (42-75); PLATELET COUNT 143 10^3/uL (130-400); RED BLOOD COUNT 4.97 10^6/uL (4.35-5.85); RED CELL DISTRIBUTION WIDTH 12.9 % (10.0-14.5); WHITE BLOOD COUNT 9.3 10^3/uL (4.3-11.0)
[2017-01-13 18:32] LABS: PROTHROMBIN TIME PATIENT 13.6 SEC (12.2-14.7)
[2017-01-13 18:40] LABS: ALANINE AMINOTRANSFERASE 19 U/L (0-55); ALBUMIN 3.7 GM/DL (3.2-4.5); ANION GAP 8 MMOL/L (5-14); ASPARTATE AMINO TRANSFERASE 20 U/L (5-34); BILIRUBIN,TOTAL 0.4 MG/DL (0.1-1.0); BLOOD UREA NITROGEN 18 MG/DL (7-18); BUN/CREATININE RATIO 17; CALCIUM 8.5 MG/DL (8.5-10.1); CARBON DIOXIDE 25 MMOL/L (21-32); CHLORIDE 105 MMOL/L (98-107); CREATININE SERUM 1.05 MG/DL (0.60-1.30); GFR ESTIMATED > 60; GLUCOSE 106 MG/DL (70-105); MAGNESIUM 2.1 MG/DL (1.8-2.4); SODIUM 138 MMOL/L (135-145); TOTAL PROTEIN 6.5 GM/DL (6.4-8.2)
[2017-01-13 18:47] LABS: MYOGLOBIN SERUM 238.1 NG/ML (10.0-92.0)
--- NOTE | 2017-01-13 18:52 | Diagnostic Imaging Report ---
EXAM: CHEST 1 VIEW, AP/PA ONLY INDICATION: Chest pain. COMPARISON: Chest radiograph 10/11/2016. FINDINGS: Low lung volumes and technique markedly limits the examination. Cardiac silhouette is obscured. Normal central pulmonary vascularity. Mild left basilar atelectasis or infiltrate. No definite pleural effusion. No pneumothorax. No acute osseous findings. IMPRESSION: Limited exam. No acute cardiopulmonary findings. Dictated by: Dictated on workstation # [id number]
[2017-01-13] MEDS ORDERED: ENOXAPARIN 100 MG/1 ML (LOVENOX) SYR SC ONE (19:15)
[2017-01-13] MEDS ORDERED: CLOPIDOGREL 300 MG (PLAVIX) TABLET PO ONE (19:15)
[2017-01-13] MEDS ORDERED: ONDANSETRON 4 MG/2 ML (SDV) Z0FRAN IV PRN (20:30)
[2017-01-13] MEDS ORDERED: ACETAMINOPHEN 500 MG TAB (TYLENOL) PO PRN (20:30)
[2017-01-13] MEDS ORDERED: CATHETER FLUSH 10 ML SYR IV PRN (20:30)
[2017-01-13] MEDS ORDERED: morphine INJ 4 MG/ML 1 ML (VIAL/SYRINGE) IV PRN (20:30)
[2017-01-13] MEDS ORDERED: INFLUENZA TRIvalent 2017-2018 0.5 ML/45 MCG SYR IM ONE (20:30)
[2017-01-13] MEDS ORDERED: ATORVASTATIN 40 MG (LIPITOR) TABLET PO SCH (21:00)
[2017-01-13] MEDS: CATHETER FLUSH 10 ML SYR IV SCH (22:38)
[2017-01-14] VITALS (19 sets, daily range): BP systolic 97–115; BP diastolic 35–99
[2017-01-14 04:50] LABS: BASOPHILS % (AUTO) 0 % (0-10); EOSINOPHILS # (AUTO) 0.3 10^3/uL (0.0-0.3); EOSINOPHILS % (AUTO) 4 % (0-10); LYMPHOCYTES # (AUTO) 1.9 X 10^3 (1.0-4.0); LYMPHOCYTES % (AUTO) 23 % (12-44); MEAN CORPUSCULAR HEMOGLOBIN 31 PG (25-34); MEAN CORPUSCULAR HGB CONC 34 G/DL (32-36); MEAN CORPUSCULAR VOLUME 89 FL (80-99); MONOCYTES # (AUTO) 0.8 X 10^3 (0.0-1.0); MONOCYTES % (AUTO) 9 % (0-12); NEUTROPHILS # (AUTO) 5.3 X 10^3 (1.8-7.8); NEUTROPHILS % (AUTO) 64 % (42-75); PLATELET COUNT 135 10^3/uL (130-400); RED BLOOD COUNT 4.72 10^6/uL (4.35-5.85); RED CELL DISTRIBUTION WIDTH 12.9 % (10.0-14.5); WHITE BLOOD COUNT 8.2 10^3/uL (4.3-11.0)
[2017-01-14] MEDS: CATHETER FLUSH 10 ML SYR IV SCH ×3 (05:20→21:40)
[2017-01-14 05:30] LABS: ALANINE AMINOTRANSFERASE 16 U/L (0-55); ALBUMIN 3.4 GM/DL (3.2-4.5); ANION GAP 8 MMOL/L (5-14); ASPARTATE AMINO TRANSFERASE 31 U/L (5-34); BILIRUBIN,TOTAL 0.6 MG/DL (0.1-1.0); BLOOD UREA NITROGEN 18 MG/DL (7-18); BUN/CREATININE RATIO 19; CALCIUM 8.3 MG/DL (8.5-10.1); CARBON DIOXIDE 23 MMOL/L (21-32); CHLORIDE 107 MMOL/L (98-107); CHOLESTEROL 172 MG/DL (< 200); CREATININE SERUM 0.93 MG/DL (0.60-1.30); DIRECT LDL 120 MG/DL (1-129); GFR ESTIMATED > 60; GLUCOSE 100 MG/DL (70-105); POTASSIUM 3.9 MMOL/L (3.6-5.0); SODIUM 138 MMOL/L (135-145); TOTAL PROTEIN 5.8 GM/DL (6.4-8.2); TRIGLYCERIDES 164 MG/DL (<150); VLDL CHOLESTEROL 33 MG/DL (5-40)
[2017-01-14 05:47] LABS: TROPONIN I 3.92 NG/ML (<0.30)
[2017-01-14] MEDS: lisINopril 10 MG (PRINIVIL) TAB PO SCH (07:44)
[2017-01-14] MEDS ORDERED: ASPIRIN E.C. 325 MG (ECOTRIN) TABLET PO SCH (09:00)
[2017-01-14] MEDS ORDERED: MECL-106 PO (09:12)
[2017-01-14] MEDS ORDERED: BIMA2.5D4 OU (09:12)
[2017-01-14] MEDS ORDERED: TIMO5DRO8 OU (09:14)
[2017-01-14] MEDS ORDERED: CLOPIDOGREL 75 MG (PLAVIX) TABLET PO ONE (09:45)
--- NOTE | 2017-01-14 10:06 | Consultation-Cardiology ---
HPI-Cardiology Cardiology Consultation: Date of Consultation 01/14/17 Date of Admission Attending Physician Paris Laureano DO Admitting Physician Juno Cruz MD Consulting Physician Jessi FRAUSTO MD HPI: Time Seen by Provider: 10:05 Chief Complaint: Chest pain This is a 66-year-old gentleman with no significant past medical history. He presents with prolonged episode of chest pain which started at 11 a.m. in the morning yesterday. He came to the ER at around 6 p.m. Significant improvement with nitroglycerin. Therefore total chest pain was around 7 hours or so. Chest pain was substernal with no significant radiation. He denied any exacerbating or relieving factors. It was moderate in intensity. He did not complain of any other cardiac symptoms including shortness of breath, syncope, near-syncope or palpitations. Review of Systems-Cardiology Review of Systems Constitutional: No As described under HPI, No no symptoms reported, No chills, No fever, No lightheadedness, No malaise, No tiredness, No weight loss, No weight gain, No other Eyes: No As described under HPI, No no symptoms reported, No blindness, No blurred vision, No contact lenses, No drainage, No decreased acuity, No foreign body sensation, No glasses, No inflammation, No pain, No photophobia, No previous injury, No shadows, No tunnel vision, No other, No vision change Ears/Nose/Throat: No As described under HPI, No no symptoms reported, No chronic hearing loss, No epistaxis, No ear discharge, No ear pain, No loose teeth, No mouth pain, No mouth swelling, No nasal drainage, No nose pain, No recent hearing loss, No throat pain, No throat swelling, No ulcerations, No other Respiratory: No no symptoms reported, No As described under HPI, No cough, No orthopnea, No shortness of breath, No SOB with excertion, No SOB at rest, No stridor, No wheezing, No other Cardiovascular: chest pain Genitourinary: No no symptoms reported, No As described under HPI, No burning, No dysuria, No discharge, No frequency, No flank pain, No hematuria, No incontinence, No pain, No urgency, No other, No urine frequency changes, No urine coloration changes Musculoskeletal: No no symptoms reported, No As describe under HPI, No back pain, No gout, No joint pain, No joint swelling, No muscle pain, No muscle stiffness, No neck pain, No other Skin: No no symptoms reported, No As described under HPI, No change in color, No change in hair/nails, No dryness, No lesions, No lumps, No rash, No other, No skin related problems, No ulcerations, No rash on exposed areas, No ulcerations on exposed areas Psychiatric/Neurological: No no symptoms reported, No As described under HPI, No anxiety, No depression, No emotional problems, No headache, No numbness, No pre-existing deficit, No seizure, No tingling, No tremors, No weakness, No other , No focal weakness, No syncope Hematologic: No no symptoms reported, No As described under HPI, No anemia, No blood clots, No easy bleeding, No easy bruising, No swollen glands, No other, No bleeding abnormalities VEP-Awyvos-Bckeqc Hx Patient Social History Alcohol Use: Denies Use Recreational Drug Use: No Smoking Status: Former Smoker Former smoker/When Quit: Jul 25, 1967 Type Used: Cigarettes Recent Foreign Travel: No Recent Infectious Disease Expo: No Hospitalization with Isolation: Denies Physical Abuse Screen: No Sexual Abuse: No Immunizations Up To Date Tetanus Booster (TDap): Unknown Past Medical History PMH As described under Assessment. Family Medical History Family History: Asthma G8 SISTER Deafness or hearing loss 19 MOTHER Glaucoma 19 MOTHER Neoplasm 19 FATHER (DAD OF LEUKEMIA ) Thyroid disease 19 MOTHER Allergies and Home Medications Allergies Coded Allergies: epinephrine (Unverified Allergy, Severe, ANAPHYLAXIS, 07/03/15) PER PT, HAPPENED DURING PREVIOUS SURGERY IN 2004 Home Medications Bimatoprost 2.5 Ml Drops, 2 UNITS OU HS, (Reported) Meclizine HCl 25 Mg Tablet, 25 MG PO QID PRN for DIZZINESS, (Reported) Timolol Maleate 5 Ml Drops, 2 DROPS OU 0800,1500, (Reported) Physical Exam-Cardiology Physical Exam Vital Signs/I&O Vital Sign - Last 12Hours 01/14/17 01/14/17 01/14/17 01/14/17 00:00 00:00 00:00 01:00 Temp 96.9 Pulse 46 44 B/P (MAP) 97/57 (70) Pulse Ox 96 97 O2 Delivery Room Air Room Air 01/14/17 01/14/17 01/14/1717 04:00 04:00 07:00 07:44 Temp 97.6 99.0 Pulse 48 53 52 Resp 16 14 B/P (MAP) 101/65 (77) 115/81 (92) Pulse Ox 96 97 93 O2 Delivery Room Air NIV CPAP Room Air 01/14/17 01/14/17 01/14/17 01/14/17 08:00 08:00 11:41 11:46 Temp 99.2 Pulse 52 Resp 16 B/P (MAP) 110/73 (85) Pulse Ox 94 O2 Delivery Room Air Room Air Room Air Room Air Capillary Refill : Less Than 3 Seconds Constitutional: No appears stated age, No AAO x 3, No apparent distress, No PERRL, No well-developed, No well-nourished, No other HEENT: No PERRL, No normal ENT inspection, No TMs normal, No pharynx normal, No scleral icterus (R), No scleral icterus (L), No pale conjunctivae (R), No pale conjunctivae (L), No photophobia, No TM abnormal (R), No TM abnormal (L), No pharyngeal erythema, No tonsillar exudate, No other, No discharge, No EOMI, No hearing is well preserved, No hard of hearing, No oral hygience is good, No ulceration, No xanthelasmas are seen Neck: No non-tender, No full range of motion, No supple, No normal inspection, No carotid bruit, No limited range of motion, No lymphadenopathy (R), No lymphadenopathy (L), No tender lateral, No tender midline, No thyromegaly, No other, No carotid pulses are 2 + bilaterally, No with good upstrokes Respiratory: No accessory muscle use, No respiratory distress, No chest tender , No chest expansion is symmetric, No chest is bilaterally symmetric, No lungs clear to percussion, No lungs clear to auscultation, No crackles, No rhonchi, No rales, No stridor, No wheezing, No pleural rub, No other Cardiovascular: regular rate-rhythm, No irregularly irregular, No extra beats, No parasternal heave is noted, No JVD, No edema, No bradycardia, No tachycardia , No point of maximal impulse, No cardiac thrills are palpable, S1 and S2, No gallop/S3, No gallop/S4, No diastolic murmur, No systolic murmur, No friction rub, No click, No other Gastrointestinal: No tender, No soft, No round, No distended, No pulsatile mass , No organomegaly, No guarding, No rebound, No tenderness, No hernia, No mass, No audible bowel sounds, No abnormal bowel sounds, No abdominal bruits, No spleenomegaly, No other Rectal: deferred Extremities: No normal range of motion, No non-tender, No normal inspection, No pedal edema, No calf tenderness, No normal capillary refill, No pelvis stable , No calf tenderness, No inflammation, No pedal edema, No slow capillary refill , No swelling, No other, No abrasion, No clubbing, No cyanosis, No ecchymosis, No laceration, No no lower extremity edema bilateral, No significant edema, No tenderness, No wound Neurologic/Psychiatric: No crocheter II-XII nml as tested, No no motor/sensory deficits, No alert, No normal mood/affect, No oriented x 3, No abnormal cerebellar tests, No abnormal crocheter II-XII, No abnormal gait, No aphasia, No EOM palsy, No facial droop, No motor weakness, No sensory deficit, No depressed affect, No disoriented x 3, No other, No grossly intact, No power is 5/5 both on sides Skin: No normal color, No warm/dry, No cyanosis, No cool, No diaphoresis, No damp, No ecchymosis, No jaundice, No mottled, No pallor, No rash, No tattoos/ piercings, No ulcerations, No rash on exposed areas, No ulcerations on exposed areas, No other Data Review Labs Laboratory Tests 01/13/17 18:17: White Blood Count 9.3, Red Blood Count 4.97, Hemoglobin 15.1, Hematocrit 44, Mean Corpuscular Volume 88, Mean Corpuscular Hemoglobin 30, Mean Corpuscular Hemoglobin Concent 35, Red Cell Distribution Width 12.9, Platelet Count 143, Mean Platelet Volume 10.9H, Neutrophils (%) (Auto) 67, Lymphocytes (%) (Auto) 21 , Monocytes (%) (Auto) 9, Eosinophils (%) (Auto) 3, Basophils (%) (Auto) 0, Neutrophils # (Auto) 6.2, Lymphocytes # (Auto) 1.9, Monocytes # (Auto) 0.8, Eosinophils # (Auto) 0.3, Basophils # (Auto) 0.0, Prothrombin Time 13.6, INR Comment 1.0, Activated Partial Thromboplast Time 26, Sodium Level 138, Potassium Level 4.0, Chloride Level 105, Carbon Dioxide Level 25, Anion Gap 8, Blood Urea Nitrogen 18, Creatinine 1.05, Estimat Glomerular Filtration Rate > 60 , BUN/Creatinine Ratio 17, Glucose Level 106H, Calcium Level 8.5, Magnesium Level 2.1, Total Bilirubin 0.4, Aspartate Amino Transf (AST/SGOT) 20, Alanine Aminotransferase (ALT/SGPT) 19, Alkaline Phosphatase 65, Myoglobin 238.1H, Troponin I 0.43*H, Total Protein 6.5, Albumin 3.7 01/14/17 04:20: White Blood Count 8.2, Red Blood Count 4.72, Hemoglobin 14.4, Hematocrit 42, Mean Corpuscular Volume 89, Mean Corpuscular Hemoglobin 31, Mean Corpuscular Hemoglobin Concent 34, Red Cell Distribution Width 12.9, Platelet Count 135, Mean Platelet Volume 11.0H, Neutrophils (%) (Auto) 64, Lymphocytes (%) (Auto) 23 , Monocytes (%) (Auto) 9, Eosinophils (%) (Auto) 4, Basophils (%) (Auto) 0, Neutrophils # (Auto) 5.3, Lymphocytes # (Auto) 1.9, Monocytes # (Auto) 0.8, Eosinophils # (Auto) 0.3, Basophils # (Auto) 0.0, Sodium Level 138, Potassium Level 3.9, Chloride Level 107, Carbon Dioxide Level 23, Anion Gap 8, Blood Urea Nitrogen 18, Creatinine 0.93, Estimat Glomerular Filtration Rate > 60, BUN/ Creatinine Ratio 19, Glucose Level 100, Calcium Level 8.3L, Total Bilirubin 0.6 , Aspartate Amino Transf (AST/SGOT) 31, Alanine Aminotransferase (ALT/SGPT) 16, Alkaline Phosphatase 62, Troponin I 3.92*H, Total Protein 5.8L, Albumin 3.4, Triglycerides Level 164H, Cholesterol Level 172, LDL Cholesterol Direct 120, VLDL Cholesterol 33, HDL Cholesterol 28L ECG Impression ECG Initial ECG Rhythm: Normal Sinus Initial ECG Impression: Normal A/P-Cardiology Assessment/Admission Diagnosis Non-STEMI Plan Non-ST elevation SC: Was given bolus aspirin, Plavix and Lovenox yesterday. No Lovenox today. Request echocardiogram. Coronary angiography this afternoon. I discussed at length all the risks and complications including vascular damage , bleeding, stroke, SC and even . Once all the risks and complication were understood informed consent was signed. Continue lisinopril and beta jonny. Elevated lipid profile will therefore require statin therapy. Thank you for your consultation. Please call me if you have any questions. Dahlia Frausto MD, FACP, FACC, FSCAI, FHRS, CCDS Interventional Cardiology Cardiac Electrophysiology Vascular Medicine and Endovascular Interventions Clinical Quality Measures AMI/AHF: ASA po Prior to arrival: No DVT/VTE Risk/Contraindication: Risk Factor Score Per Nursin RFS Level Per Nursing on Admit: 2=Moderate Jessi FRAUSTO MD Jan 14, 2017 10:06
[2017-01-14] MEDS ORDERED: HEParin (CATH LAB) 2,000 ML IV ONE (11:44)
[2017-01-14] MEDS ORDERED: NS IV 1000 ML 1,000 ML ONE (11:44)
[2017-01-14] MEDS ORDERED: LIDOCAINE 1% INJ 50 ML (XYLOCAINE) VIAL ONE (11:44)
[2017-01-14] MEDS ORDERED: fentaNYL INJECTION 100 MCG/2 ML AMP ONE (12:49)
[2017-01-14] MEDS ORDERED: MIDAZOLAM 2 MG/2 ML (VERSED) VIAL ONE (12:49)
[2017-01-14] MEDS ORDERED: HEParin 1000 UNIT/ML (10ML VIAL) FOR BOLUS ONE (12:52)
[2017-01-14] MEDS ORDERED: NITROGLYCERIN DRIP 25 MG/D5W 250 ML IV ONE (12:52)
[2017-01-14] MEDS ORDERED: VERAPAMIL 5 MG/2 ML (CALAN) VIAL IV ONE (12:52)
--- NOTE | 2017-01-14 13:34 | History & Physical-Hospitalist ---
HPI History of Present Illness: HPI/Chief Complaint Mr. Hennessy is a 66-year-old white male with no known history of coronary disease who noted the onset of substernal chest discomfort around 11 a.m. It radiated to his back with associated aching in his left arm. It was pretty much consistent telemetry finally decided to have it checked out emergency room around 6 p.m. he received nitroglycerin emergency room with resolution of his pain. His initial troponin level was mildly elevated a little over 0.4. EKG revealed no evidence for ischemia. He was admitted to the intensive care unit with diagnosis of acute non-ST segment elevation MO with cardiology consultation with Dr. Frausto. As his mental more fatigued with little more dyspnea on exertion than usual over the past several weeks. He had not had any other occurrences of similar chest discomfort that brought him to the emergency room. He's had more fleeting episodes of discomfort that tend to last less than a minute mild nonradiating and not associated with diaphoresis shortness of breath or nausea. He denies any problems with heartburn or dysphasia. Date Seen 01/14/17 Time Seen by Provider: 07:00 Attending Physician Aashish Cedeno M.D. PCP Aashish Cedeno MD Referring Physician Date of Admission Jan 13, 2017 at 19:15 Home Medications & Allergies Home Medications Reviewed patient Home Medication Reconciliation Form Allergies Allergies Coded Allergies epinephrine (Unverified Allergy, Severe, ANAPHYLAXIS, 07/03/15) PER PT, HAPPENED DURING PREVIOUS SURGERY IN 2004 Past Glqdxhc-Riptty-Sgdren Hx Patient Social History Alcohol Use: Denies Use Recreational Drug Use: No Smoking Status: Former Smoker Former Smoker, Quit: July 02, 1967 Type Used: Cigarettes Physical Abuse Screen: No Sexual Abuse: No Recent Foreign Travel: No Contact w/other who traveled: No Recent Hopitalizations: No Recent Infectious Disease Expo: No Immunizations Up To Date Tetanus Booster (TDap): Unknown Seasonal Allergies Seasonal Allergies: Yes Surgeries Yes (R/L Rototar Cuff, Hemorrhoids Removed, Kidney Stone ) Gallbladder, Orthopedic, Renal Respiratory Yes (c pap machine) Currently Using CPAP: Yes Cardiovascular No Neurological No Reproductive System Hx Reproductive Disorders: No Sexually Transmitted Disease: No HIV/AIDS: No Genitourinary Yes Kidney Stones Gastrointestinal Yes Chronic Constipation, Gall Bladder Disease Musculoskeletal No Endocrine History of Endocrine Disorders: No HEENT History of HEENT Disorders: Yes HEENT Disorders: Glaucoma Loss of Vision: Denies Hearing Impairment: Denies Cancer No Psychosocial History of Psychiatric Problem: Yes (CLAUSTROPHOBIA ) Integumentary History of Skin or Integumenta: No Blood Transfusions History of Blood Disorders: No Adverse Reaction to a Blood Tr: No Family Medical History Significant Family History: No Pertinent Family Hx, Cancer Family Hx: Asthma G8 SISTER Deafness or hearing loss 19 MOTHER Glaucoma 19 MOTHER Neoplasm 19 FATHER (DAD OF LEUKEMIA ) Thyroid disease 19 MOTHER Review of Systems Constitutional: no symptoms reported, see HPI, No chills, No diaphoresis, dizziness, No fever, No malaise, No weakness, No weight gain, No weight loss, No other Respiratory: see HPI, No cough, dyspnea on exertion, No hemoptysis, No orthopnea, No phlegm, No short of breath, No stridor, No wheezing, No other Cardiovascular: No no symptoms reported, see HPI, chest pain, No edema, No Hx of Intervention, No palpitations, No syncope, No vascular heart diseas, No other Physical Exam Physical Exam Vital Signs Vital Sign - Last 12Hours 01/13/17 01/15/17 18:04 00:00 Temp 97.9 Pulse 61 Resp 18 B/P (MAP) 137/79 (98) Pulse Ox 96 O2 Delivery Room Air O2 Flow Rate 21.00 FiO2 21 Capillary Refill : Less Than 3 Seconds General Appearance: No Apparent Distress, WD/WN, Obese Eyes: Bilateral Eye Normal Inspection Neck: Full Range of Motion, Normal Inspection, Non Tender, Supple, Carotid Bruit Respiratory: Chest Non Tender, Lungs Clear, Normal Breath Sounds, No Accessory Muscle Use, No Respiratory Distress Cardiovascular: Regular Rate, Rhythm, No Edema, No Gallop, No JVD, No Murmur, Normal Peripheral Pulses Gastrointestinal: Normal Bowel Sounds, No Organomegaly, No Pulsatile Mass, Non Tender, Soft Extremity: Normal Capillary Refill, Normal Inspection, Normal Range of Motion, Non Tender, No Calf Tenderness, No Pedal Edema Neurologic/Psychiatric: Alert, Oriented x3, No Motor/Sensory Deficits, Normal Mood/Affect Results Results/Procedures Lab Assessment/Plan Admission Diagnosis 1. Acute non-ST segment elevation MO with no previous history of coronary disease. Patient is scheduled for cardiac catheterization later this afternoon per Dr. Frausto currently the patient is hemodynamically stable and free of chest pain. Echocardiogram has been done with verbal report that no segmental wall motion her maladies were identified with normal LV systolic function. Clinical Quality Measures AMI/AHF: ASA po Prior to arrival: No DVT/VTE Risk/Contraindication: Risk Factor Score Per Nursin RFS Level Per Nursing on Admit: 2=Moderate AASHISH CEDENO MD Jan 14, 2017 13:34
[2017-01-14] MEDS ORDERED: EPTIFIBATIDE DRIP 100 ML IV ONE (14:00)
[2017-01-14] MEDS ORDERED: EPTIFIBATIDE BOLUS 20 ML IV ONE (14:01)
[2017-01-14] MEDS ORDERED: diphenhydrAMINE 50 MG/ML INJ (BENADRYL) ONE (14:14)
[2017-01-14] MEDS ORDERED: PROTAMINE 50 MG/5 ML VIAL IV ONE (14:45)
[2017-01-14] MEDS ORDERED: NS IV 1000 ML 1,000 ML IV SCH (14:45)
--- NOTE | 2017-01-14 15:16 | Cardiac Procedure Note-CS/ASA ---
Pre-Procedure Note Pre-Op Procedure Note H&P Reviewed The H&P was reviewed, patient examined and no changes noted. Date H&P Reviewed: Jan 14, 2017 Time H&P Reviewed: 13:00 Conscious Sedation Pre-Proced Time Reviewed: 13:00 ASA Class: 3 Airway Mallampati Classification: ([place] appropriate class) I. II. III, IV Lungs Heart ASA score ASA 1: a normal healthy patient ASA 2: a patient with a mild systemic disease (mid diabetes, controlled hypertension, obesity ASA 3: a patient with a severe systemic disease that limits activity (angina , COPD, prior Myocardial infarction) ASA 4: a patient with an incapacitating disease that is a constant threat to life (CHF, renal failure) ASA 5: a moribund patient not expected to survive 24 hrs. (ruptured aneurysm) ASA 6: a declared brain patient whose organs are being harvested. For emergent operations, add the letter E after the classification Grade 1 Sedation Plan: Analgesia, Amnesia, Plan communicated to team members, Discussed options with patient/fam, Discussed risks with patient/fam Note The patient is an appropriate candidate to undergo the planned procedure, sedation, and anesthesia. The patient immediately re-assessed prior to indication. Jessi JIMENEZ MD Jan 14, 2017 3:16 pm
--- NOTE | 2017-01-14 15:21 | Cardiology Post Procedure Note ---
Post-Procedure Note Physician (s)/Security Professional (s) Physician Jessi JIMENEZ MD Pre-Procedure Diagnosis Pre-Procedure Diagnosis: NSTEMI Post-Procedure Note Procedure Start Date: Jan 14, 2017 Procedure Start Time: 13:00 Name of Procedure: Coronary angiography, PCI to LAD with two MEGAN Findings/Procedure Note Severe diffuse mid and distal LAD disease, treated with two MEGAN. Mild to moderate OM disease. Mild to moderate diffuse RCA disease. Small wire perforation with pericardial staining noted - therefore integrillin dced. Heparin reversed with protamine 20mg iv. Echo done over twenty minutes, showed trivial pericardial effusion with no increase. Anesthesia Type: Conscious Sedation Estimated blood loss (mL): 20 Contrast Amount: 230 Post-Procedure Diagnosis Post-operative diagnosis: Severe LAD disease treated successfully with two MEGAN. Jessi JIMENEZ MD Jan 14, 2017 3:21 pm
[2017-01-14] MEDS ORDERED: PATIENT MAY USE OWN MEDS, ALL PO SCH (15:30)
[2017-01-14] MEDS: NS IV 1000 ML 1,000 ML IV SCH (16:15)
[2017-01-14] MEDS ORDERED: ATORVASTATIN 80 MG (LIPITOR) TABLET PO SCH (21:00)
--- NOTE | 2017-01-14 22:34 | CARDIAC CATHETERIZATION ---
DATE OF SERVICE: 01/14/2017 CORONARY ANGIOGRAPHY AND PCI REPORT INDICATION: Non-ST elevation [place]. PREOPERATIVE DIAGNOSIS: Non-ST elevation myocardial infarction. POSTOPERATIVE DIAGNOSIS: Non-ST elevation myocardial infarction, status post PCI to the mid and distal LAD with two drug-eluting stents. HISTORY: The patient is a 66-year-old gentleman who does not have any significant past medical history. He presents with prolonged episode of chest pain yesterday. Cardiac enzymes were positive. A working diagnosis of non-ST elevation KY was made. He was scheduled for urgent coronary angiography. PROCEDURE PERFORMED: 1. Coronary angiography. 2. PCI to the LAD with drug-eluting stents. SPECIMENS: None. ESTIMATED BLOOD LOSS: 30 mL. ANTICOAGULATION: IV heparin and Integrilin. ANESTHESIA: Conscious sedation. CONTRAST DOSE: 230 mL of Omnipaque. FLUOROSCOPY DOSE: 2956 mGy. FLUOROSCOPY TIME: 23.9 minutes. PROCEDURE DETAILS: The patient was brought [facility] the [facility] after informed consent was taken. All the risks and complications were explained in detail. The patient was draped and prepped in the usual sterile fashion. Access was gained in the right radial artery with a 6-Wolof sheath. Coronary angiography was performed with a Obi catheter. FINDINGS: 1. Left main: Patent. 2. LAD: Severe subtotal disease in the mid LAD with LIZZIE 1 flow distally. There is also severe disease in the distal LAD. Stenosis severity in the mid LAD is 95% and in the distal LAD is 90%. 3. Left circumflex artery. Moderate disease is noted in the first obtuse marginal artery. 4. RCA: There is [id number] disease in the proximal and mid RCA. The RCA is a small caliber vessel. RECOMMENDATION: PCI to the LAD is recommended. PCI DETAILS: EBU 4 guide catheter, Whisper guidewire. IV heparin and Integrilin for anticoagulation. ACT was 280 seconds. We crossed the lesion with the Whisper wire. We first took a 2.0 x 15 balloon and performed balloon dilatation in the mid and distal segment of the LAD. In the mid segment of the LAD, we dilated till 10 atmospheres and in the distal vessel, we dilated till 6 atmospheres. We then took another Emerge 2.5 x 20 balloon and did more aggressive ballooning in the mid LAD up to 12 atmospheres. We then took Xience Alpine 2.5 x 38 drug-eluting stent and deployed it in the mid LAD at 10 atmospheres for 34 seconds and the stent balloon was pulled back a little bit. Another inflation was done at 10 atmospheres for 50 seconds. We then took an NC Quantum balloon 3.0 x 20 and did two balloon inflations in the mid and proximal segments of the mid LAD stent. The first inflation was for 16 atmospheres for 35 seconds and second inflation was for 20 atmospheres for 35 seconds. We then took Xience Alpine 2.25 x 28 mm balloon and deployed in the distal LAD at 12 atmospheres for 60 seconds. We had given 100 mcg of intracoronary nitroglycerin with no significant improvement of the stenosis in the distal LAD. At the end of the procedure, we noticed pericardial staining, which is likely due to a wire perforation. Echocardiogram was performed, which showed trace pericardial effusion. We continued performing the echocardiogram every 10 minutes over 30 minutes and no significant increase in the pericardial effusion was noted. Integrilin was discontinued and the patient was given protamine 20 mg to reverse the ACT. The ACT at the end of the procedure was 160 seconds. We took another set of images just before the procedure was stopped and there was no significant increase in the pericardial effusion. IMPRESSION/CONCLUSION: Non-ST elevation myocardial infarction, severe diffuse disease in the mid and distal LAD treated with two drug-eluting stents. Wire perforation noted with no increase in pericardial effusion on echocardiogram over 30 minutes. The patient will continue aspirin and Plavix for 1 year. I have also given beta-jonny, SCOTT inhibitor and high-dose statin. The patient will be kept overnight for observation. Job ID: [id number] DocumentID: [id number] Dictated Date: 01/14/2017 16:36:01 Marine Equipment Sales Engineer Date: 01/14/2017 18:40:57 Dictated By: RODRIGUEZ JIMENEZ MD [facility]
[2017-01-15] VITALS: BP 94/60
[2017-01-15] MEDS: NS IV 1000 ML 1,000 ML IV SCH (01:30)
[2017-01-15 04:00] VITALS: BP 107/68
[2017-01-15 04:27] LABS: RED BLOOD COUNT 4.6 10^6/uL (4.35-5.85); RED CELL DISTRIBUTION WIDTH 13.1 % (10.0-14.5); WHITE BLOOD COUNT 8.7 10^3/uL (4.3-11.0)
[2017-01-15 04:47] LABS: ANION GAP 6 MMOL/L (5-14); BLOOD UREA NITROGEN 16 MG/DL (7-18); BUN/CREATININE RATIO 17; CALCIUM 7.7 MG/DL (8.5-10.1); CARBON DIOXIDE 21 MMOL/L (21-32); CHLORIDE 111 MMOL/L (98-107); CREATININE SERUM 0.96 MG/DL (0.60-1.30); GFR ESTIMATED > 60; GLUCOSE 97 MG/DL (70-105); POTASSIUM 4.3 MMOL/L (3.6-5.0); SODIUM 138 MMOL/L (135-145)
[2017-01-15 05:05] LABS: TROPONIN I 3.86 NG/ML (<0.30)
[2017-01-15] MEDS: CATHETER FLUSH 10 ML SYR IV SCH (06:17)
[2017-01-15 08:00] VITALS: BP 108/63
[2017-01-15] MEDS: lisINopril 10 MG (PRINIVIL) TAB PO SCH (08:14)
[2017-01-15] MEDS ORDERED: CLOPIDOGREL 75 MG (PLAVIX) TABLET PO SCH (09:00)
[2017-01-15] MEDS ORDERED: ASPIRIN E.C. 81 MG (ECOTRIN) TAB PO SCH (09:00)
--- NOTE | 2017-01-15 10:43 | Cardiology Progress Note ---
Cardiology SOAP Progress Note Subjective: no chest pain Objective: I&O/Vital Signs Vital Sign - Last 12Hours 01/15/17 01/15/17 01/15/17 01/15/17 00:00 00:00 00:00 01:00 Temp 98.7 Pulse 47 48 Resp 21 B/P (MAP) 94/60 (71) Pulse Ox 94 O2 Delivery NIV CPAP NIV CPAP NIV CPAP O2 Flow Rate 21.00 21.00 FiO2 21 01/15/17 01/15/17 01/15/17 01/15/17 04:00 04:00 04:00 07:00 Temp 98.4 Pulse 50 67 Resp 25 B/P (MAP) 107/68 (81) Pulse Ox 95 O2 Delivery NIV CPAP Nasal Cannula NIV CPAP O2 Flow Rate 21.00 2.00 21.00 01/15/17 01/15/17 01/15/17 08:00 08:00 08:21 Temp 99.5 Pulse 63 Resp 26 B/P (MAP) 108/63 (78) Pulse Ox 93 O2 Delivery Room Air Room Air Room Air Weight (Pounds): 222 Weight (Ounces): 6.0 Weight (Calculated Kilograms): 100.672515 Constitutional: No appears stated age, No AAO x 3, No apparent distress, No PERRL, No well-developed, No well-nourished, No other Respiratory: No accessory muscle use, No respiratory distress, No chest tender , No chest expansion is symmetric, No chest is bilaterally symmetric, No lungs clear to percussion, No lungs clear to auscultation, No crackles, No rhonchi, No rales, No stridor, No wheezing, No pleural rub, No other Cardiovascular: regular rate-rhythm, No irregularly irregular, No extra beats, No parasternal heave is noted, No JVD, No edema, No bradycardia, No tachycardia , No point of maximal impulse, No cardiac thrills are palpable, S1 and S2, No gallop/S3, No gallop/S4, No diastolic murmur, No systolic murmur, No friction rub, No click, No other Gastrointestional: No tender, No soft, No round, No distended, No pulsatile mass, No organomegaly, No guarding, No rebound, No tenderness, No hernia, No mass, No audible bowel sounds, No abnormal bowel sounds, No abdominal bruits, No spleenomegaly, No other Extremities: No normal range of motion, No non-tender, No normal inspection, No pedal edema, No calf tenderness, No normal capillary refill, No pelvis stable , No calf tenderness, No inflammation, No pedal edema, No slow capillary refill , No swelling, No other, No abrasion, No clubbing, No cyanosis, No ecchymosis, No laceration, No no lower extremity edema bilateral, No significant edema, No tenderness, No wound Neurologic/Psychiatric: No canvas repairer II-XII nml as tested, No no motor/sensory deficits, No alert, No normal mood/affect, No oriented x 3, No abnormal cerebellar tests, No abnormal canvas repairer II-XII, No abnormal gait, No aphasia, No EOM palsy, No facial droop, No motor weakness, No sensory deficit, No depressed affect, No disoriented x 3, No other, No grossly intact, No power is 5/5 both on sides Skin: No normal color, No warm/dry, No cyanosis, No cool, No diaphoresis, No damp, No ecchymosis, No jaundice, No mottled, No pallor, No rash, No tattoos/ piercings, No ulcerations, No rash on exposed areas, No ulcerations on exposed areas, No other Results/Procedures: Labs Laboratory Tests 01/15/17 04:04: White Blood Count 8.7, Red Blood Count 4.60, Hemoglobin 14.1, Hematocrit 41, Mean Corpuscular Volume 90, Mean Corpuscular Hemoglobin 31, Mean Corpuscular Hemoglobin Concent 34, Red Cell Distribution Width 13.1, Platelet Count 121L, Mean Platelet Volume 11.0H, Sodium Level 138, Potassium Level 4.3, Chloride Level 111H, Carbon Dioxide Level 21, Anion Gap 6, Blood Urea Nitrogen 16, Creatinine 0.96, Estimat Glomerular Filtration Rate > 60, BUN/Creatinine Ratio 17, Glucose Level 97, Calcium Level 7.7L, Troponin I 3.86*H A/P: Assessment/Dx: Non-STEMI, pericardial effusion, hyperlipidemia Plan: Non-ST elevation CA: discussed at length with the patient and family about healthy living including diet, exercise, salt restriction. Discussed all post cardiac catheterization discharge instructions. Counseling lasted over 30 minutes. Patient will continue aspirin, Plavix, beta jonny, SCOTT inhibitor and statin. Compliance with medications especially Plavix was emphasized. I will recommend another troponin at 12 noon. If troponin is trending down patient is okay to discharge to follow-up with me in office in one to 2 weeks. Mild pericardial effusion: Sequential echocardiograms done last night and this morning showed no increase in pericardial effusion. No further evaluation is required. Hyperlipidemia: High-dose statin therapy. Thank you for your consultation. Please call me if you have any questions. Dahlia Frausto MD, FACP, FACC, FSCAI, FHRS, CCDS Interventional Cardiology Cardiac Electrophysiology Vascular Medicine and Endovascular Interventions Clinical Quality Measures AMI/AHF: ASA po Prior to arrival: Jessi Trimble MD Jan 15, 2017 10:43 am
[2017-01-15] MEDS ORDERED: METO-333 PO (10:47)
[2017-01-15] MEDS ORDERED: CLOP75TA28 PO (10:47)
[2017-01-15] MEDS ORDERED: ASPI-983 PO (10:47)
[2017-01-15] MEDS ORDERED: ATOR80TA76 PO (10:47)
[2017-01-15] MEDS ORDERED: LISI10TA2 PO (10:47)
--- NOTE | 2017-01-15 10:48 | Discharge Inst-Post CATH ---
Discharge Inst-CATH Post Cardiac Cath D/C Inst Follow Up/Plan Dr. Frausto in one to [address] Cruz. CARDIAC CATH DISCHARGE INSTRUCTIONS *Hold Metformin for 48 hours post heart cath. ACTIVITY * Go Home directly and rest. * Limit activity of the leg (or wrist if it was used) for 7 days including aerobics, swimming, jogging, bicycling, etc. * Restrict stair-climbing for 7 days if possible, if not, climb up with your non -cath leg, then bring together on the same step. * Avoid lifting, pushing, pulling or excessive movement of the affected extremity for 7 days. * Customary sexual activity may be resumed after 2 days-use caution not to use a position that strains or causes pain to the affected extremity. * No driving for 24 hours. * NO SMOKING. * Avoid straining for bowel movements for 7 days. * Gentle walking on level ground is allowed. * Returning to work will depend on the type of procedure and the results. Your doctor will discuss this with you. CALL YOUR DOCTOR FOR ANY OF THE FOLLOWING: *If bleeding from the puncture site occurs- Apply gentle pressure to site with clean cloth and call your doctor or EMS. * If a knot or lump forms under the skin, increases in size, or causes pain. * If bruising appears to be worsening or moving further down your leg instead of disappearing. * Temperature above 101 F. CARE OF YOUR GROIN INCISION; * Bruising or purple discoloration of the skin near the puncture site is common. * You may shower only, no bathtub bathing for 5 days. Be careful to avoid slipping as your leg may feel stiff. * If a closure device was used on your femoral artery, please see the attached guide regarding care of the device and your leg. * REMOVE the dressing from your groin the next day after your procedure in the shower. CARE OF YOUR WRIST INCISION; * Bruising or purple discoloration of the skin near the puncture site is common. * You may shower. * DO NOT submerge wrist. * Remove dressing in 24 hours. Jessi FRAUSTO MD Jan 15, 2017 10:48 am
[2017-01-15 12:00] VITALS: BP 99/66
--- NOTE | 2017-01-15 13:35 | Discharge Summary-Hospitalist ---
Diagnosis/Chief Complaint Date of Admission Jan 13, 2017 at 19:15 Date of Discharge Discharge Date: Jan 15, 2017 Discharge Time: 1300 Admission Diagnosis 1. Acute non-ST segment elevation KS with no previous history of coronary disease. Patient is scheduled for cardiac catheterization later this afternoon per Dr. Frausto currently the patient is hemodynamically stable and free of chest pain. Echocardiogram has been done with verbal report that no segmental wall motion her maladies were identified with normal LV systolic function. Discharge Diagnosis 1. Acute non-ST segment elevation KS culprit vessel being the LAD status post mid and distal LAD stent placement drug-eluting. Discharge Summary Discharge Physical Examination Allergies: Coded Allergies: epinephrine (Unverified Allergy, Severe, ANAPHYLAXIS, 07/03/15) PER PT, HAPPENED DURING PREVIOUS SURGERY IN 2004 Vitals & I&Os Vital Signs Date Time Temp Pulse Resp B/P (MAP) Pulse Ox O2 Delivery O2 Flow Rate FiO2 01/15/17 12:00 Room Air 01/15/17 12:00 98.9 57 19 99/66 (77) 93 01/15/17 04:00 21.00 01/15/17 00:00 21 Hospital Course Mr. Hennessy presented emergency room with about an 8 hour history of chest discomfort. His admission troponin level was elevated at 0.4 with an unremarkable EKG. After nitroglycerin he remained pain free. Second troponin levels up to 3.8. He underwent cardiac catheterization per Dr. Norris and had 2 high-grade lesions in the LAD mid and distal portions. He underwent drug- eluting stent placement 2. Right radial approach was utilized. Catheter was complicated by small pericardial effusion presumably small tear. The patient remained asymptomatic with no change on serial echocardiography. He was feeling well in the afternoon of the second with troponin levels trending lower down to 3.2 and again no symptoms. He was discharged on beta jonny therapy SCOTT inhibitor and high-dose statin in addition to 81 mg aspirin daily and 75 mg Plavix daily. For any recurrence of chest pain or shortness of breath he is to return to the emergency room. He'll be following up with Dr. Frausto per his discretion and I will see him back in the office in several weeks. Labs (last 24 hrs) Laboratory Tests 01/15/17 04:04: White Blood Count 8.7, Red Blood Count 4.60, Hemoglobin 14.1, Hematocrit 41, Mean Corpuscular Volume 90, Mean Corpuscular Hemoglobin 31, Mean Corpuscular Hemoglobin Concent 34, Red Cell Distribution Width 13.1, Platelet Count 121L, Mean Platelet Volume 11.0H, Sodium Level 138, Potassium Level 4.3, Chloride Level 111H, Carbon Dioxide Level 21, Anion Gap 6, Blood Urea Nitrogen 16, Creatinine 0.96, Estimat Glomerular Filtration Rate > 60, BUN/Creatinine Ratio 17, Glucose Level 97, Calcium Level 7.7L, Troponin I 3.86*H 01/15/17 12:09: Troponin I 3.28*H Pending Labs Laboratory Tests 01/15/17 12:09: Troponin I 3.28 Discharge Home Medications: Active Scripts Active Aspirin EC (Aspirin) 81 Mg Tablet.dr 81 Mg PO DAILY 90 Days Lisinopril 10 Mg Tablet 10 Mg PO DAILY@0900 90 Days Metoprolol Tartrate 25 Mg Tablet 25 Mg PO BID 90 Days Atorvastatin Calcium 80 Mg Tablet 80 Mg PO HS 90 Days Clopidogrel (Clopidogrel Bisulfate) 75 Mg Tablet 75 Mg PO DAILY 90 Days Reported Timoptic (Timolol Maleate) 5 Ml Drops 2 Drops OU 0800,1500 Meclizine HCl 25 Mg Tablet 25 Mg PO QID PRN Lumigan (Bimatoprost) 2.5 Ml Drops 2 Units OU HS Instructions to patient/family Please see electronic discharge instructions given to patient. Clinical Quality Measures AMI/AHF: ASA po Prior to arrival: No DVT/VTE Risk/Contraindication: Risk Factor Score Per Nursin RFS Level Per Nursing on Admit: 2=Moderate Copy Copies To 1: AASHISH CEDENO MD, MARK D MD Jan 15, 2017 13:34
== END 2017-01-15 13:15 | disposition home or self-care (01) | DRG 247 ==
LOC: EDUNIT# 18:04 → ER 18:06 → ICU 19:15
PROVIDERS: ADMIT Internal Medicine; ATTEND Internal Medicine
PROC: 027035Z Dilation of Coronary Artery, One Artery with Two Drug-eluting Intraluminal Devices, Percutaneous Approach (ICD-10-PCS; principal; 2017-01-14)
PROC: B2111ZZ Fluoroscopy of Multiple Coronary Arteries using Low Osmolar Contrast (ICD-10-PCS; 2017-01-14)
DX: I21.4 Non-ST elevation (NSTEMI) myocardial infarction (principal); I25.10 Atherosclerotic heart disease of native coronary artery without angina pectoris; I97.51 Accidental puncture and laceration of a circulatory system organ or structure during a circulatory system procedure; I31.3 Pericardial effusion (noninflammatory); E78.5 Hyperlipidemia, unspecified; G47.30 Sleep apnea, unspecified; Z87.891 Personal history of nicotine dependence
CPT/HCPCS: 36415; 71010; 80048; 80053; 80061; 83735; 83874; 84484; 85025; 85027; 85610; 85730; 87070; 87205; 93005; 93041; 93306; 93308

== ENCOUNTER → 2017-05-05 | Outpatient (CLI) | payer MEDICARE, OTHER ==
[~2017-05-05] VITALS: Ht 167.6 cm; Wt 95.3 kg
[~2017-05-05] MED LIST changes: +ASPI-983 PO; +ATOR80TA76 PO; +CATHETER FLUSH 10 ML SYR IV PRN; +CLOP75TA28 PO; +HYDR-34 PO; -HYDR-3816 PO; +LISI10TA2 PO; +METO-333 PO; +REGADENOSON 0.4 MG/5 ML SYR (LEXISCAN) IV ONE; +TIMO5DRO8 OU
[2017-05-05 09:14] VITALS: BP 127/66
[2017-05-05 17:38] VITALS: BP 130/75
--- NOTE | 2017-05-05 17:38 | Cardiology Stress Test Report ---
Stress Test Report Type of NM Stress Test: Test Type: LEXISCAN 0.4MG/5ML Date of Procedure/Referring: Date of Procedure: May 05, 2017 PCP Jessi Frausto MD Admitting Physician Juno Cruz MD Indications: Chest pain, shortness of breath, history of CAD. Baseline Heart Rate: 59 Baseline Blood Pressure: Blood Pressure Systolic: 130 Blood Pressure Diastolic: 75 Baseline EKG: Baseline EKG: sinus rhythm Summary: The patient was brought to the above informed consent was taken. Stress test was performed according to the Lexiscan protocol. 0.4 mg of IV Lexiscan was given. Low-grade exercise was performed. Baseline EKG showed sinus rhythm at 59 BPM. Blood pressure 130/75 mmHg. Last blood pressure 121/67 mmHg. Maximum heart rate 94 BPM. Patient did not have any chest pain, no ST-T wave abnormalities or arrhythmias were noted. 10.31 mCi of Myoview was given for rest imaging and 31.5 mCi of Myoview was given for stress imaging. Transient ischemic dilatation score was 1.02. EF 57 percent with no wall motion abnormalities. There is a small mild intensity fixed apical defect noted. Conclusion: Pharmacological stress test is negative for ischemia. Normal LV function with no wall motion abnormalities. Evidence of small apical infarct with no whit-infarct ischemia. Clinical correlation is recommended. Jessi FRAUSTO MD May 05, 2017 5:38 pm
== END ==
LOC: CARD 06:50
PROVIDERS: ATTEND Internal Medicine Interventional Cardiology
DX: I25.10 Atherosclerotic heart disease of native coronary artery without angina pectoris (principal); R07.9 Chest pain, unspecified; E78.5 Hyperlipidemia, unspecified; I10 Essential (primary) hypertension; G47.33 Obstructive sleep apnea (adult) (pediatric); E66.9 Obesity, unspecified
CPT/HCPCS: 78452; 93017

== ENCOUNTER 2017-05-18 11:09 | Outpatient (RCR) | payer MEDICARE, OTHER ==
[~2017-05-18 11:09] MED LIST changes: -CATHETER FLUSH 10 ML SYR IV PRN; -REGADENOSON 0.4 MG/5 ML SYR (LEXISCAN) IV ONE
== END 2017-05-19 | disposition home or self-care (01) ==
LOC: CR 11:09
PROVIDERS: ATTEND Internal Medicine Interventional Cardiology
DX: Z48.812 Encounter for surgical aftercare following surgery on the circulatory system (principal); Z95.5 Presence of coronary angioplasty implant and graft; I25.2 Old myocardial infarction
CPT/HCPCS: 93798

== ENCOUNTER → 2017-05-27 | Outpatient (CLI) | payer MEDICARE, OTHER ==
[2017-05-27 07:55] LABS: CHOLESTEROL 109 MG/DL (< 200); HDL CHOLESTEROL 34 MG/DL (40-60); TRIGLYCERIDES 69 MG/DL (<150); VLDL CHOLESTEROL 14 MG/DL (5-40)
== END ==
LOC: LAB 07:23
PROVIDERS: ATTEND Internal Medicine Interventional Cardiology
DX: E78.5 Hyperlipidemia, unspecified (principal); I25.10 Atherosclerotic heart disease of native coronary artery without angina pectoris
CPT/HCPCS: 36415; 80061

== ENCOUNTER → 2017-09-01 | Outpatient (CLI) | payer MEDICARE, OTHER ==
[~2017-09-01] MED LIST changes: +CATHETER FLUSH 10 ML SYR IV PRN; +REGADENOSON 0.4 MG/5 ML SYR (LEXISCAN) IV ONE
[2017-09-01 09:16] VITALS: BP 120/66
--- NOTE | 2017-09-01 16:34 | Cardiology Stress Test Report ---
Stress Test Report Type of NM Stress Test: Test Type: LEXISCAN 0.4MG/5ML Date of Procedure/Referring: Date of Procedure: Sep 01, 2017 PCP Jessi Frausto MD Admitting Physician Juno Cruz MD Indications: Chest pain, history of PCI Baseline Heart Rate: 53 Baseline Blood Pressure: Blood Pressure Systolic: 121 Blood Pressure Diastolic: 77 Baseline EKG: Baseline EKG: sinus rhythm Summary: The patient was brought to the stress lab after informed consent was taken. Stress test was performed according to the Lexiscan protocol. 0.4 mg of IV Lexiscan was given. Low-grade exercise was performed. Baseline EKG showed sinus rhythm at 53BPM. Initial blood pressure was 121/77mmHg. Maximum heart rate was 85bpm and blood pressure 120/66 mmHg. Patient did not have any chest pain, arrhythmias or ST segment changes during the stress test. 10.84 mCi of Myoview were given for rest imaging and 28.9 mCi of Myoview given for stress imaging. Transient ischemic dilatation score 1.18 , EF 63percent. Normal wall motion.Mild small apical defect. Conclusion: Pharmacological stress test was negative for ischemia. Normal LV function with no wall motion abnormalities. Mild small apical defect. Clinical correlation is recommended. Jessi FRAUSTO MD Sep 01, 2017 16:34
[2017-09-02 16:18] VITALS: BP 121/77
== END ==
LOC: CARD 06:37
PROVIDERS: ATTEND Internal Medicine Interventional Cardiology
DX: R07.9 Chest pain, unspecified (principal); I25.10 Atherosclerotic heart disease of native coronary artery without angina pectoris
CPT/HCPCS: 78452; 93017

== ENCOUNTER 2017-09-26 12:00 | Outpatient (RCR) | payer MEDICARE, OTHER ==
[~2017-09-26 12:00] MED LIST changes: -CATHETER FLUSH 10 ML SYR IV PRN; -REGADENOSON 0.4 MG/5 ML SYR (LEXISCAN) IV ONE
[2017-10-13] MEDS ORDERED: ASPI-983 PO (07:55)
[2017-10-13] MEDS ORDERED: ATOR80TA76 PO (07:55)
[2017-10-13] MEDS ORDERED: CLOP75TA69 PO (07:55)
[2017-10-13] MEDS ORDERED: LISI10TA2 PO (07:55)
[2017-10-13] MEDS ORDERED: ISOS30TA3 PO (13:32)
== END 2017-11-30 | disposition home or self-care (01) ==
LOC: CARD 12:00
PROVIDERS: ATTEND Internal Medicine Interventional Cardiology
DX: R07.9 Chest pain, unspecified (principal); R00.1 Bradycardia, unspecified
CPT/HCPCS: 93270

== ENCOUNTER → 2018-02-17 | Emergency (ER) | payer MEDICARE, OTHER | LOC: ER 15:12 ==

== ENCOUNTER 2018-06-24 08:57 | Emergency (ER) | payer MEDICARE, OTHER ==
[~2018-06-24] VITALS: Ht 167.6 cm; Wt 98.9 kg
[~2018-06-24 08:57] MED LIST changes: +CLOP75TA69 PO; +ISOS30TA3 PO
--- NOTE | 2018-06-24 09:22 | NUR ---
DR IN ROOM WITH PT AT THIS TIME.
[2018-06-24] MEDS ORDERED: methylPREDNISolone 40 MG/ML (DEPO MEDROL) VIAL IA ONE (09:30)
[2018-06-24] MEDS ORDERED: BUP/EPI 0.5% 1:200,000 (SENSORCAINE) 30 ML VIAL INJ ONE (09:30)
--- NOTE | 2018-06-24 09:32 | ED Back Pain ---
General Chief Complaint: Lower Extremity Stated Complaint: BACK PAIN / R LEG PAIN Nursing Triage Note: ARRIVED VIA AMB TO ROOM 05 WITH COMPLAINTS OF RIGHT LOW BACK/LEG PAIN. STATES HE HAS THERAPY FOR THIS ISSUE BUT IT BECAME WORSE AFTER PUSHING A CAR ON TUESDAY. Nursing Sepsis Screen: No Definite Risk Source of Information: Patient, Spouse Exam Limitations: No Limitations History of Present Illness Date Seen by Provider: June 24, 2018 Time Seen by Provider: 09:10 Initial Comments The patient presents to ER with his significant other chief complaint of some back pain with pain radiating down his leg on the right side to just above the knee. He does not have a history of sciatica but he did have a fall with subsequent vertebral fractures in February, about 5 months ago. He was working with Dr. WOLFE and Dr. Encarnacion and doing physical therapy and improving significantly. He did have another fall in March. He's never had MRI of his back. No surgery on his back. He does not have diabetes or hypertension. She did just finish a course of steroids day or [address] Encarnacion. He did not have any significant problems with the steroids. He's never had knee injections in his back but he has talked about it with Dr. Wolfe. He's not having any saddle anesthesia and numbness weakness falls urinary incontinence or hesitancy. He is noticing this pain today for the past couple days after he had to push one of his antique cars back into the garage. No history of hernias. Bowels are moving fine. Does not take opiates. Has been using Aleve one capsule this morning. Allergies and Home Medications Allergies Coded Allergies: epinephrine (Unverified Allergy, Severe, ANAPHYLAXIS, 07/03/15) PER PT, HAPPENED DURING PREVIOUS SURGERY IN 2004 Home Medications Aspirin 81 Mg Tablet.dr, 81 MG PO DAILY, (Reported) Atorvastatin Calcium 80 Mg Tablet, 80 MG PO DAILY, (Reported) Bimatoprost 2.5 Ml Drops, 2 UNITS OU HS, (Reported) Clopidogrel Bisulfate 75 Mg Tablet, 75 MG PO DAILY, (Reported) Cyclobenzaprine HCl 10 Mg Tablet, 10 MG PO Q8H PRN for SPASMS Prescribed by: DAVINA HAIRSTON on 06/24/18 0940 Isosorbide Mononitrate 30 Mg Tab.er.24h, 30 MG PO DAILY Prescribed by: Jessi JIMENEZ on 10/13/17 1332 Lisinopril 10 Mg Tablet, 10 MG PO DAILY, (Reported) Timolol Maleate 5 Ml Drops, 2 DROPS OU 0800,1500, (Reported) Patient Home Medication List Home Medication List Reviewed: Yes Review of Systems Constitutional: No chills, No malaise EENTM: No hearing loss, No ear pain Respiratory: No cough, No short of breath Cardiovascular: No chest pain, No edema Gastrointestinal: No abdominal pain, No constipation, No nausea Genitourinary: No discharge, No dysuria, No frequency, No hematuria Musculoskeletal: back pain; No joint pain Past [id number]-[id number]-[id number] Hx Patient Social History Alcohol Use: Denies Use Recreational Drug Use: No Smoking Status: Former Smoker Type Used: Cigarettes Former Smoker, Quit: Oct 14, 1967 Recent Foreign Travel: No Contact w/Someone Who Travel: No Recent Infectious Disease Expo: No Recent Hopitalizations: No Immunizations Up To Date Tetanus Booster (TDap): Unknown Seasonal Allergies Seasonal Allergies: Yes Past Medical History Surgeries: Yes (R/L Rototar Cuff, Hemorrhoids Removed, Kidney Stone ) Gallbladder, Orthopedic, Renal Respiratory: Yes (c pap machine) Sleep Apnea Currently Using CPAP: Yes Cardiac: No Neurological: No Reproductive Disorders: No Sexually Transmitted Disease: No HIV/AIDS: No Genitourinary: Yes Kidney Stones Gastrointestinal: Yes Chronic Constipation, Gall Bladder Disease Musculoskeletal: No Endocrine: No HEENT: Yes Glaucoma Loss of Vision: Denies Hearing Impairment: Denies Cancer: No Psychosocial: Yes (CLAUSTROPHOBIA ) Integumentary: No Blood Disorders: No Adverse Reaction/Blood Tranf: No Family Medical History Asthma G8 SISTER Deafness or hearing loss 19 MOTHER Glaucoma 19 MOTHER Neoplasm 19 FATHER (DAD OF LEUKEMIA ) Thyroid disease 19 MOTHER No Pertinent Family Hx, Cancer Physical Exam Vital Signs Vital Signs - First Documented 06/24/18 09:02 Temp 98.7 Pulse 54 Resp 16 B/P (MAP) 135/78 (97) Pulse Ox 93 Capillary Refill : Less Than 3 Seconds Height, Weight, BMI Height: 5'6.00" Weight: 218lbs. 0.0oz. 98.534134xi; 33.9 BMI Method:Stated General Appearance: WD/WN, Mild Distress HEENT: PERRL/EOMI, Pharynx Normal, Moist Mucous Membranes Neck: Full Range of Motion, Normal Inspection Cardiovascular: Regular Rate, Rhythm, No Murmur Respiratory: No Accessory Muscle Use, No Respiratory Distress Back: Vertebral Tenderness (midline tenderness over the L-spine and especially over the L5-S1 facet joint and some lateral right-sided paraspinous tenderness to palpation) Extremity: Normal Capillary Refill, Normal Inspection, No Pedal Edema Neurologic/Psychiatric: Alert, Oriented x3 Procedures/Interventions Progress 1/2 cc 1% lidocaine and 1/2 cc of 0.5% Marcaine with epinephrine were drawn up with 40 mg of Depo-Medrol and injected the L5-S1 facet joint using a 25-gauge 1- 1/2 inch needle. The site was cleaned thoroughly with alcohol and then iodine and using standard sterile technique we applied the injection. Patient tolerated procedure well no bleeding or numbness. Progress/Results/Core Measures Results/Orders My Orders Orders - DAVINA HAIRSTON Bupivacaine 0.5% W/Epi Inj (Sensorcaine (06/24/18 09:30) Methylprednisolone Acetate Inj (Depo-Med (06/24/18 09:30) Medications Given in ED Current Medications Medications Dose Ordered Sig/Ziyad Route Start Time Stop Time Status Last Admin Dose Admin Bupivacaine HCl/ Epinephrine Bitart 30 ml ONCE ONCE INJ 06/24/18 09:30 06/24/18 09:31 DC 06/24/18 09:40 30 ML Methylprednisolone Acetate 40 mg ONCE ONCE IA 06/24/18 09:30 06/24/18 09:31 DC 06/24/18 09:40 40 MG Vital Signs/I&O 06/24/18 09:02 Temp 98.7 Pulse 54 Resp 16 B/P (MAP) 135/78 (97) Pulse Ox 93 Blood Pressure Mean: 97 Progress Progress Note : Time: 09:34 Progress Note No neurologic deficits or red flag signs. Since he just got off a course of prednisone we would do a 40 mg Depo-Medrol and 5050 mix of lidocaine and Marcaine with epinephrine. We'll put it right into the L5-S1 facet joint. We discussed the risks, benefits and alternatives and he has agreed to do it. Muscle relaxants and encouraged NSAIDs. Follow-up with primary care. Departure Impression Primary Impression: Lumbago with sciatica, right side Qualified Codes: M54.41 - Lumbago with sciatica, right side Disposition: 01 HOME, SELF-CARE Condition: Stable Departure-Patient Inst. Decision time for Depature: 09:54 Referrals: JANET ENCARNACION MD (PCP/Family) Primary Care Physician Patient Instructions: Low Back Pain (DC) Add. Discharge Instructions: Go home and get some rest. Put a heating pad on your back. You can use topical creams such as icy hot, Biofreeze or a cream with Capsaicin oil. Obtain a back brace from the pharmacy and wear it on the days that your back hurts. If you're having muscle spasms in your back you can use one tablet of cyclobenzaprine every 8 hours as needed. Cyclobenzaprine Will cause drowsiness and should not be mixed with alcohol or long drives. Tylenol 1000 mg every 8 hours as necessary for pain. For the next 1-2 weeks take the Aleve 2 capsules twice a day on a schedule. Discontinue the Aleve, ibuprofen, Naprosyn if you begin to have stomach pain or chest pain and see a doctor. The steroid in the shot may cause you to have increased appetite and a little extra wired energy and difficulty sleeping but this is temporary. Follow-up with primary care doctor in 1-2 weeks if not seeing some improvement. Continue to use physical therapy. Return to the ER if you have difficulty urinating, numbness, weakness or other worrisome symptoms. All discharge instructions reviewed with patient and/or family. Voiced understanding. Scripts Cyclobenzaprine HCl (Cyclobenzaprine HCl) 10 Mg Tablet 10 MG PO Q8H PRN for SPASMS, #20 TAB 0 Refills Prov: DAVINA HAIRSTON 06/24/18 DAVINA HAIRSTON June 24, 2018 09:32
[2018-06-24] MEDS ORDERED: CYCL10TA9 PO (09:40)
--- NOTE | 2018-06-24 09:44 | NUR ---
MEDICATIONS INJECTED BY DR HAIRSTON.
[2018-06-24 09:58] VITALS: BP 135/78
== END 2018-06-24 09:58 | disposition home or self-care (01) ==
LOC: EDUNIT# 08:57 → ER 08:58
DX: M54.41 Lumbago with sciatica, right side (principal); G47.30 Sleep apnea, unspecified; F40.240 Claustrophobia; Z80.6 Family history of leukemia; Z87.19 Personal history of other diseases of the digestive system; Z88.8 Allergy status to other drugs, medicaments and biological substances; Z79.82 Long term (current) use of aspirin; Z79.02 Long term (current) use of antithrombotics/antiplatelets; Z87.891 Personal history of nicotine dependence; Z87.442 Personal history of urinary calculi; Z98.890 Other specified postprocedural states
CPT/HCPCS: 96372; 99284

== ENCOUNTER → 2018-06-26 | Outpatient (CLI) | payer MEDICARE, OTHER ==
[~2018-06-26] MED LIST changes: +CYCL10TA9 PO
--- NOTE | 2018-06-26 14:18 | Diagnostic Imaging Report ---
INDICATION: Back pain, radicular, down the right leg. FINDINGS: Degenerative disc space narrowing, endplate sclerosis, osteophytes, and facet arthrosis are present as a chronic finding. No fracture or malalignment, however. No acute-appearing bony abnormality. IMPRESSION: Spondylosis and facet arthrosis with no acute osseous abnormality or malalignment apparent. Dictated by: Dictated on workstation # [id number]
== END ==
LOC: RAD 11:43
PROVIDERS: ATTEND Nurse Practitioner Family
DX: M47.26 Other spondylosis with radiculopathy, lumbar region (principal)
CPT/HCPCS: 72100

== ENCOUNTER → 2018-08-28 | Outpatient (RCR) | payer MEDICARE, OTHER | END | disposition home or self-care (01) | PROVIDERS: ATTEND Physician Assistant | DX: M48.061 Spinal stenosis, lumbar region without neurogenic claudication (principal) ==

== ENCOUNTER → 2018-09-15 | Outpatient (CLI) | payer MEDICARE, OTHER | LOC: CARD 10:20 | PROVIDERS: ATTEND Internal Medicine Interventional Cardiology | DX: I25.10 Atherosclerotic heart disease of native coronary artery without angina pectoris (principal); I11.9 Hypertensive heart disease without heart failure; G47.33 Obstructive sleep apnea (adult) (pediatric); E78.5 Hyperlipidemia, unspecified | CPT/HCPCS: 93306 ==

== ENCOUNTER 2018-09-18 13:47 | Outpatient (RCR) | payer MEDICARE, OTHER | END 2018-09-25 09:48 | disposition still patient (30) | PROVIDERS: ATTEND Physician Assistant | DX: M48.061 Spinal stenosis, lumbar region without neurogenic claudication (principal) ==

== ENCOUNTER → 2018-10-05 | Outpatient (CLI) | payer MEDICARE, OTHER ==
[~2018-10-05] MED LIST changes: +CATHETER FLUSH 10 ML SYR IV PRN; +REGADENOSON 0.4 MG/5 ML SYR (LEXISCAN) IV ONE
[2018-10-05 09:12] VITALS: BP 122/66
--- NOTE | 2018-10-06 10:52 | Cardiology Stress Test Report ---
Stress Test Report Type of NM Stress Test: Test Type: LEXISCAN 0.4MG/5ML Date of Procedure/Referring: Date of Procedure: Oct 05, 2018 PCP Jessi Frausto MD Admitting Physician Edmar Torres MD Indications: Chest pain, CAD Baseline Heart Rate: 54 Baseline Blood Pressure: Blood Pressure Systolic: 122 Blood Pressure Diastolic: 66 Baseline EKG: Baseline EKG: sinus rhythm Summary & Conclusion: Summary: The patient was brought to the stress lab after informed consent was taken. Stress test was performed according to the Lexiscan protocol. 0.4 mg of IV Lexiscan was given. Low-grade exercise was performed. Baseline EKG showed sinus rhythm at 54 BPM. Initial blood pressure was 119/68 mmHg. Maximum heart rate was 76 bpm and blood pressure 136/72 mmHg. Patient did not have any chest pain, arrhythmias or ST segment changes during the stress test. 10.76 mCi of Myoview were given for rest imaging and 30.0 mCi of Myoview given for stress imaging. Transient ischemic dilatation score 0.99, EF 59 percent. Normal wall motion. Small apical defect which is mildly worse on stress images. Conclusion: Pharmacological stress test was negative for ischemia. Normal LV function with no wall motion abnormalities. Likely small apical infarct with possible small whit-infarct ischemia. Clinical correlation is recommended. Jessi FRAUSTO MD Oct 06, 2018 10:52
== END ==
LOC: CARD 06:48
PROVIDERS: ATTEND Internal Medicine Interventional Cardiology
DX: I25.10 Atherosclerotic heart disease of native coronary artery without angina pectoris (principal); E78.5 Hyperlipidemia, unspecified; I10 Essential (primary) hypertension; G47.33 Obstructive sleep apnea (adult) (pediatric)
CPT/HCPCS: 78452; 93017

== ENCOUNTER → 2018-10-23 | Outpatient (CLI) | payer MEDICARE, OTHER ==
[~2018-10-23] MED LIST changes: -CATHETER FLUSH 10 ML SYR IV PRN; -REGADENOSON 0.4 MG/5 ML SYR (LEXISCAN) IV ONE
--- NOTE | 2018-10-23 17:41 | Diagnostic Imaging Report ---
INDICATION: Abdominal aortic aneurysm without rupture. COMPARISON STUDY: CT of the abdomen and pelvis from 12/17/2015. FINDINGS: Transabdominal imaging of the abdominal aorta demonstrates no aneurysm. No surrounding fluid collections are present. The aorta ranges from 1.8 to 1.9 cm in size. The right common iliac artery measures 11 x 11 mm and the left measures 13 x [address] scan also demonstrates no aortic aneurysm. IMPRESSION: There is no abdominal aortic aneurysm. Dictated by: Dictated on workstation # [id number]
== END ==
LOC: RAD 06:41
PROVIDERS: ATTEND Nurse Practitioner Family
DX: I71.4 Abdominal aortic aneurysm, without rupture (principal)
CPT/HCPCS: 76775

== ENCOUNTER 2018-12-25 13:50 | Outpatient (RCR) | payer MEDICARE, OTHER | END 2019-01-01 | disposition home or self-care (01) | PROVIDERS: ATTEND Physical Medicine & Rehabilitation | DX: M62.81 Muscle weakness (generalized) (principal) ==

== ENCOUNTER 2019-04-30 11:15 | Outpatient (RCR) | payer MEDICARE, OTHER ==
[~2019-04-30 11:15] MED LIST changes: -MECL-106 PO; +MECL-149 PO; -TAMS0.4C98 PO; +TMSL.4C PO
== END 2019-05-09 | disposition home or self-care (01) ==
LOC: CR3 11:15
PROVIDERS: ATTEND Internal Medicine Interventional Cardiology
DX: Z29.8 Encounter for other specified prophylactic measures (principal)

== ENCOUNTER → 2019-10-08 | Outpatient (CLI) | payer MEDICARE, OTHER | LOC: CARD 11:00 | PROVIDERS: ATTEND Internal Medicine Interventional Cardiology | DX: I25.10 Atherosclerotic heart disease of native coronary artery without angina pectoris (principal); I10 Essential (primary) hypertension; R42 Dizziness and giddiness; R53.83 Other fatigue | CPT/HCPCS: 93306 ==

== ENCOUNTER → 2020-01-01 | Outpatient (CLI) | payer MEDICARE, OTHER ==
[~2020-01-01] MED LIST changes: +ASPI-1238 PO; -ASPI-983 PO
--- NOTE | 2020-01-01 15:49 | Diagnostic Imaging Report ---
INDICATION: Dyspnea. TECHNIQUE/COMPARISON: PA and lateral views of the chest were obtained at 2:10 PM and compared to 01/13/2017. FINDINGS: The heart and mediastinal silhouette are normal in appearance. The lungs are clear. There is no pneumothorax or pleural fluid. There are diffuse degenerative findings in the thoracic spine. IMPRESSION: No acute process in the chest. Dictated by: Dictated on workstation # [id number]
== END ==
LOC: RAD 13:57
PROVIDERS: ATTEND Nurse Practitioner Family
DX: R06.00 Dyspnea, unspecified (principal)
CPT/HCPCS: 71046

== ENCOUNTER → 2020-01-07 | Outpatient (CLI) | payer MEDICARE, OTHER ==
[~2020-01-07] MED LIST changes: +RT-ALBUTEROL SULF 2.5 MG/3 ML PRE-MIX VIAL INH ONE
== END ==
LOC: RT 09:49
PROVIDERS: ATTEND Nurse Practitioner Family
DX: R06.00 Dyspnea, unspecified (principal)
CPT/HCPCS: 94060; 94726; 94729

== ENCOUNTER → 2020-02-12 | Outpatient (CLI) | payer MEDICARE, OTHER ==
[~2020-02-12] MED LIST changes: +CATHETER FLUSH 10 ML SYR IV PRN; +HOLD METFORMIN - RECEIVED CONTRAST 20 ML VIAL IV SCH; +IOHEXOL 350 MG/ML 100 ML (OMNIPAQUE 350) VIAL IV ONE; +NS 100 ML (IVPB) BAG IV ONE; -RT-ALBUTEROL SULF 2.5 MG/3 ML PRE-MIX VIAL INH ONE
[2020-02-12 08:30] LABS: BUN/CREATININE RATIO 19; GFR ESTIMATED > 60
--- NOTE | 2020-02-12 09:51 | Diagnostic Imaging Report ---
PROCEDURE: CT angiography of the chest with contrast. TECHNIQUE: Multiple contiguous axial images were obtained through the chest after uneventful bolus administration of intravenous contrast. 3D reconstructed CTA MIP acquisitions were also performed. Auto Exposure Controls were utilized during the CT exam to meet ALARA standards for radiation dose reduction. INDICATION: Shortness of air and chest pain as well as productive cough. COMPARISON: No prior studies are available for comparison. FINDINGS: Evaluation of the pulmonary arterial system is without evidence of thromboembolism. No filling defects are seen within central, lobar, or segmental branches. Thoracic aorta is normal in caliber. No dissection is identified. There is no pericardial or pleural fluid. No axillary lymphadenopathy is seen. No mediastinal or hilar lymphadenopathy is detected. Pulmonary parenchymal evaluation demonstrates the lungs to be clear. There are no infiltrates, nodules, or masses. Upper abdomen does show circumscribed low-attenuation lesions within the liver, suggestive of cysts. Probable renal sinus cysts on the left are also noted. IMPRESSION: 1. No evidence of pulmonary embolism or thoracic aortic dissection. No thoracic lymphadenopathy or pulmonary parenchymal mass is identified. Dictated by: Dictated on workstation # [id number]
== END ==
LOC: RAD 09:45
PROVIDERS: ATTEND Nurse Practitioner Family
DX: Z03.89 Encounter for observation for other suspected diseases and conditions ruled out (principal); M79.609 Pain in unspecified limb; M79.89 Other specified soft tissue disorders; R06.00 Dyspnea, unspecified
CPT/HCPCS: 36415; 71275; 82565; 84520

== ENCOUNTER 2020-03-12 13:18 | Outpatient (RCR) | payer MEDICARE, OTHER ==
[~2020-03-12 13:18] MED LIST changes: -CATHETER FLUSH 10 ML SYR IV PRN; -HOLD METFORMIN - RECEIVED CONTRAST 20 ML VIAL IV SCH; -IOHEXOL 350 MG/ML 100 ML (OMNIPAQUE 350) VIAL IV ONE; -NS 100 ML (IVPB) BAG IV ONE
== END 2020-03-12 15:30 | disposition home or self-care (01) ==
DX: M54.16 Radiculopathy, lumbar region (principal)

== ENCOUNTER → 2020-05-28 | Outpatient (RCR) | payer MEDICARE, OTHER ==
[~2020-05-28] MED LIST changes: -ISOS30TA3 PO; +ISOS30TA82 PO; -LISI10TA2 PO; +LISI10TA25 PO
== END | disposition home or self-care (01) ==
LOC: CR3 04-28 11:49
PROVIDERS: ATTEND Internal Medicine Interventional Cardiology
DX: Z29.8 Encounter for other specified prophylactic measures (principal)

== ENCOUNTER 2020-06-11 11:12 | Outpatient (RCR) | payer MEDICARE, OTHER | END 2020-06-29 | disposition home or self-care (01) | LOC: CR3 11:12 | PROVIDERS: ATTEND Internal Medicine Interventional Cardiology | DX: Z29.8 Encounter for other specified prophylactic measures (principal) ==

== ENCOUNTER 2021-06-09 06:43 | Day surgery (SDC) | payer MEDICARE, OTHER ==
[2021-06-09] VITALS (11 sets, daily range): BP systolic 124–151; BP diastolic 72–83
[~2021-06-09] VITALS: Ht 167.6 cm; Wt 95.4 kg
[~2021-06-09 06:43] MED LIST changes: +CYCL10TA25 PO; -CYCL10TA9 PO; -SULF1TAB35 PO; +SULF1TAB38 PO
[2021-06-09] MEDS ORDERED: HEParin (CATH LAB) 2,000 ML IV ONE (06:54)
[2021-06-09] MEDS ORDERED: NS IV 1000 ML 1,000 ML ONE (06:54)
[2021-06-09] MEDS ORDERED: LIDOCAINE 1% INJ 20 ML VIAL ONE (06:54)
[2021-06-09] MEDS ORDERED: NS IV 1000 ML 1,000 ML IV SCH ×2 (07:00→11:00)
[2021-06-09 07:10] LABS: HEMOGLOBIN 15.2 g/dL (13.3-17.7); MEAN PLATELET VOLUME 11.3 fL (9.0-12.2); WHITE BLOOD COUNT 8.6 10^3/uL (4.3-11.0)
[2021-06-09 07:17] LABS: ALBUMIN 3.9 GM/DL (3.2-4.5); POTASSIUM 4.4 MMOL/L (3.6-5.0)
[2021-06-09 07:18] LABS: CALCIUM 8.9 MG/DL (8.5-10.1)
[2021-06-09] MEDS ORDERED: FINA5TAB6 PO (07:19)
[2021-06-09] MEDS ORDERED: NITR0.4T39 SL (07:19)
[2021-06-09] MEDS ORDERED: MELO15TA39 PO (07:19)
[2021-06-09] MEDS ORDERED: METO-351 PO (07:19)
[2021-06-09 07:20] LABS: TOTAL PROTEIN 6.4 GM/DL (6.4-8.2)
[2021-06-09 07:21] LABS: BILIRUBIN,TOTAL 0.5 MG/DL (0.1-1.0)
[2021-06-09 07:23] LABS: CREATININE SERUM 0.98 MG/DL (0.60-1.30)
[2021-06-09] MEDS ORDERED: MIDAZOLAM 5 MG/5 ML (VERSED) VIAL ONE (09:35)
[2021-06-09] MEDS ORDERED: fentaNYL INJ 100 MCG/2 ML AMP ONE (09:35)
--- NOTE | 2021-06-09 10:37 | Cardiac Procedure Note-CS/ASA ---
Pre-Procedure Note Pre-Op Procedure Note H&P Reviewed The H&P was reviewed, patient examined and no changes noted. Date H&P Reviewed: Jun 09, 2021 Time H&P Reviewed: 10:00 Conscious Sedation Pre-Proced Time 10:00 ASA Score 3 For ASA 3 and 4: Consider anesthesia and medical clearance. Also, for patients with a history of failed moderate sedation consider anesthesia. Airway Lungs Heart ASA score ASA 1: a normal healthy patient ASA 2: a patient with a mild systemic disease (mid diabetes, controlled hypertension, obesity ASA 3: a patient with a severe systemic disease that limits activity (angina, COPD, prior Myocardial infarction) ASA 4: a patient with an incapacitating disease that is a constant threat to life (CHF, renal failure) ASA 5: a moribund patient not expected to survive 24 hrs. (ruptured aneurysm) ASA 6: a declared brain- patient whose organs are being harvested. For emergent operations, add the letter E after the classification Mallampati Classification Grade 2 Sedation Plan Analgesia, Amnesia, Plan communicated to team members, Discussed options with patient/fam, Discussed risks with patient/fam The patient is an appropriate candidate to undergo the planned procedure, sedation, and anesthesia. The patient immediately re-assessed prior to indication. JAMAICA HARMON MD FACP FAC CCDS Jun 09, 2021 10:37
[2021-06-09] MEDS ORDERED: ISOS30TA82 PO (10:58)
[2021-06-09] MEDS ORDERED: ATOR40TA70 PO (10:58)
--- NOTE | 2021-06-09 10:58 | Discharge Inst-Cardiology ---
Discharge Inst-Cardiac Discharge Medications New Medications: Atorvastatin Calcium (Atorvastatin Calcium) 40 Mg Tablet 40 MG PO DAILY for 30 Days, #30 TAB 5 Refills Isosorbide Mononitrate (Isosorbide Mononitrate ER) 30 Mg Tab.er.24h 30 MG PO DAILY for 30 Days, #30 TAB 5 Refills Continued Medications: Aspirin (Aspirin EC) 81 Mg Tablet.dr 81 MG PO DAILY, TAB Bimatoprost (Lumigan) 2.5 Ml Drops 2 UNITS OU HS, EA Finasteride (Finasteride) 5 Mg Tablet 5 MG PO DAILY, TAB Meloxicam (Meloxicam) 15 Mg Tablet 15 MG PO DAILY, TAB Metoprolol Succinate (Toprol Xl) 25 Mg Tab.er.24h 25 MG PO DAILY, TAB Nitroglycerin (Nitroglycerin) 0.4 Mg Tab.subl 0.4 MG SL UD PRN for CHEST PAIN, TAB JAMAICA HARMON MD FACP FAC CCDS Jun 09, 2021 10:58
--- NOTE | 2021-06-09 10:59 | Discharge Inst-Post CATH ---
Discharge Inst-CATH/EP Post Cardiac Cath/EP D/C Inst Follow Up/Plan F/u with Dr Colmenares in 2 weeks ACTIVITY * Go Home directly and rest. * Limit activity of the leg (or wrist if it was used) for 7 days including aerobics, swimming, jogging, bicycling, etc. * Restrict stair-climbing for 7 days if possible, if not, climb up with your n on-cath leg, then bring together on the same step. * Avoid lifting, pushing, pulling or excessive movement of the affected ex tremity for 7 days. * Customary sexual activity may be resumed after 2 days-use caution not to use a position that strains or causes pain to the affected extremity. * No driving for 24 hours. * NO SMOKING. * Avoid straining for bowel movements for 7 days. * Gentle walking on level ground is allowed. * Returning to work will depend on the type of procedure and the results. Your doctor will discuss this with you. CALL YOUR DOCTOR FOR ANY OF THE FOLLOWING: *If bleeding from the puncture site occurs- Apply gentle pressure to site with clean cloth and call your doctor or EMS. * If a knot or lump forms under the skin, increases in size, or causes pain. * If bruising appears to be worsening or moving further down your leg instead of disappearing. * Temperature above 101 F. CARE OF YOUR GROIN INCISION; * Bruising or purple discoloration of the skin near the puncture site is common. * You may shower only, no bathtub bathing for 5 days. Be careful to avoid slipping as your leg may feel stiff. * If a closure device was used on your femoral artery, please see the attached guide regarding care of the device and your leg. * Leave dressing on FOR 24 hours. CARE OF YOUR WRIST INCISION; * Bruising or purple discoloration of the skin near the puncture site is common. * You may shower. * DO NOT submerge wrist. * Leave dressing on FOR 24 hours. JAMAICA COLMENARES MD FACP FAC CCDS Jun 09, 2021 10:59
[2021-06-09] MEDS ORDERED: PATIENT MAY USE OWN MEDS, ALL PO SCH (11:00)
--- NOTE | 2021-06-09 11:00 | CARDIAC CATHETERIZATION ---
DATE OF SERVICE: 06/09/2021 CARDIAC CATHETERIZATION REPORT INDICATION FOR PROCEDURE: The patient is a 71-year-old gentleman who is known to have coronary artery disease and has had stenting of the left anterior descending artery [place] [address] Frausto. He has lately been experiencing chest discomfort and repeat cardiac catheterization was carried out after having obtained an informed consent. DESCRIPTION OF PROCEDURE: He was brought to the cardiac catheterization laboratory in a fasting state. Right groin was prepared and draped in the usual sterile fashion. Lidocaine 1% was used for local anesthesia. Modified Seldinger technique was used to advance a 5-Bermudian sheath in the right femoral artery, 5-Bermudian JL3.5 catheter was used for left coronary angiography, 5-Bermudian JR4 catheter was used for right coronary angiography, 5-Bermudian pigtail catheter was used for left heart catheterization and left ventricular angiography. Angiography of the right femoral artery was carried out through the sheath at the beginning the procedure. At the end of the procedure, Mynx was used to achieve hemostasis. He tolerated the procedure well. HEMODYNAMICS: Left ventricular end-diastolic pressure following coronary angiography was 16 mmHg. There was no significant pressure gradient on pullback across the aortic valve. CORONARY ANGIOGRAPHY: Coronary calcification is present in all coronary vessels. Left main coronary artery does not exhibit significant disease. Left anterior descending artery has mild to moderate diffuse disease. There is a widely patent stented segment in its mid portion. These are known to be Alpine Xience 2.5 x 38 mm and 2.25 x 28 mm stent. The left circumflex artery has diffuse mild disease. Right coronary artery is relatively small and nondominant and has 50% to 60% mid vessel stenosis. LEFT VENTRICULAR ANGIOGRAPHY: Left ventricular angiography was carried out in the right anterior oblique projection. Global left ventricular systolic function is normal. No regional wall motion abnormality is seen in this view. Left ventricular ejection fraction is approximately 60%. CONCLUSIONS: 1. Moderate coronary artery disease. There are patent stents in the mid left anterior descending artery that are known to be Alpine Xience 2.5 x 38 mm and 2.25 x 28 mm stents that were placed in 2018. The right coronary artery is small and nondominant and has a long 50 to 60% mid vessel stenosis. Left ventricular end-diastolic pressure is 16 mmHg. 2. Left ventricular ejection fraction approximately 60%. DISCUSSION AND RECOMMENDATIONS: Based on the results of the study, it appears appropriate to continue a conservative approach. Continuing outpatient followup is advised. Job ID: [id number] DocumentID: [id number] Dictated Date: 06/09/2021 10:31:21 Special Delivery Messenger Date: 06/09/2021 11:00:10 Dictated By: JAMAICA HARMON MD, MA, FACP, FACC,
== END 2021-06-09 14:15 | disposition home or self-care (01) ==
LOC: CATH 06:43 → SDC 10:55 → CATH 14:15
PROVIDERS: ATTEND Internal Medicine Cardiovascular Disease
DX: I25.10 Atherosclerotic heart disease of native coronary artery without angina pectoris (principal); I10 Essential (primary) hypertension; G47.33 Obstructive sleep apnea (adult) (pediatric); E78.2 Mixed hyperlipidemia; G62.9 Polyneuropathy, unspecified; E66.9 Obesity, unspecified; Z95.5 Presence of coronary angioplasty implant and graft; Z87.891 Personal history of nicotine dependence; Z68.35 Body mass index [BMI] 35.0-35.9, adult; Z79.899 Other long term (current) drug therapy
CPT/HCPCS: 80053; 80061; 85027; 85610; 85730; 87081; 93005; 93458; C1760; C1894; 36415

== ENCOUNTER 2021-06-15 18:44 | Emergency (ER) | payer MEDICARE, OTHER ==
[~2021-06-15] VITALS: Ht 164 cm; Wt 95.2 kg
[~2021-06-15 18:44] MED LIST changes: +ATOR40TA70 PO; +FINA5TAB6 PO; +MELO15TA39 PO; +METO-351 PO; +NITR0.4T39 SL
--- NOTE | 2021-06-15 20:05 | ED Lower Extremity ---
General Chief Complaint: Lower Extremity Stated Complaint: SWOLLEN LEG AND FOOT Source: patient Exam Limitations: no limitations (ADRIANA ALCALA) History of Present Illness Date Seen by Provider: June 15, 2021 Time Seen by Provider: 20:02 Initial Comments Patient is a 71-year-old male who presents ED with right leg swelling and bruising. Bruising started day after 09 June. Patient had cardiac cath. Noted some bruising the next day without specific pain. Woke up this morning noted swelling to the right leg and ankle with bruising migrating towards the foot. Reports some pain in the calf that is very mild at this time. 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 Denies of any groin pain, chest pain, shortness of breath, fever, chills, difficulty urinating. He is currently taking a baby aspirin daily. Concerning for potential blood clot. (ADRIANA ALCALA) Allergies and Home Medications Allergies Coded Allergies: epinephrine (Unverified Allergy, Severe, ANAPHYLAXIS, 07/03/15) PER PT, HAPPENED DURING PREVIOUS SURGERY IN 2004 Patient Home Medication List Home Medication List Reviewed: Yes (ADRIANA ALCALA) Aspirin (Aspirin EC) 81 Mg Tablet.dr, 81 MG PO DAILY, (Reported) Entered as Reported by: NICK GREENBERG on 10/13/17 0755 Atorvastatin Calcium (Atorvastatin Calcium) 40 Mg Tablet, 40 MG PO DAILY Prescribed by: JAMAICA COLMENARES on 06/09/21 1058 Bimatoprost (Lumigan) 2.5 Ml Drops, 2 UNITS OU HS, (Reported) Entered as Reported by: LESVIA PAIZ on 01/14/17 0912 Finasteride (Finasteride) 5 Mg Tablet, 5 MG PO DAILY, (Reported) Entered as Reported by: NICK GREENBERG on 06/09/21 0719 Isosorbide Mononitrate (Isosorbide Mononitrate ER) 30 Mg Tab.er.24h, 30 MG PO DAILY Prescribed by: JAMAICA COLMENARES on 06/09/21 1058 Meloxicam (Meloxicam) 15 Mg Tablet, 15 MG PO DAILY, (Reported) Entered as Reported by: NICK GREENBERG on 06/09/21 0719 Metoprolol Succinate (Toprol Xl) 25 Mg Tab.er.24h, 25 MG PO DAILY, (Reported) Entered as Reported by: NICK GREENBERG on 06/09/21718 Nitroglycerin (Nitroglycerin) 0.4 Mg Tab.subl, 0.4 MG SL UD PRN for CHEST PAIN, (Reported) Entered as Reported by: NICK GREENBERG on 06/09/21718 Discontinued Medications Atorvastatin Calcium (Atorvastatin Calcium) 80 Mg Tablet, 80 MG PO DAILY, (Reported) Discontinued Reason: No Longer Taking Entered as Reported by: NICK GREENBERG on 10/13/17 075 Clopidogrel Bisulfate (Plavix) 75 Mg Tablet, 75 MG PO DAILY, (Reported) Discontinued Reason: No Longer Taking Entered as Reported by: NICK GREENBERG on 10/13/17 075 Cyclobenzaprine HCl (Cyclobenzaprine HCl) 10 Mg Tablet, 10 MG PO Q8H PRN for SPASMS Discontinued Reason: No Longer Taking Prescribed by: DAVINA HAIRSTON on 06/24/18 0940 Isosorbide Mononitrate (Isosorbide Mononitrate ER) 30 Mg Tab.er.24h, 30 MG PO DAILY Discontinued Reason: No Longer Taking Prescribed by: Jessi JIMENEZ on 10/13/17 1332 Lisinopril (Lisinopril) 10 Mg Tablet, 10 MG PO DAILY, (Reported) Discontinued Reason: No Longer Taking Entered as Reported by: NICK GREENBERG on 10/13/17 075 Timolol Maleate (Timoptic) 5 Ml Drops, 2 DROPS OU 0800,1500, (Reported) Discontinued Reason: No Longer Taking Entered as Reported by: LESVIA PAIZ on 01/14/17 0914 Review of Systems Constitutional: No chills, No diaphoresis, No malaise, No weakness EENTM: No blurred vision, No double vision, No dental problems, No hoarseness, No mouth pain, No mouth swelling Respiratory: No cough, No dyspnea on exertion Cardiovascular: No chest pain, No Hx of Intervention Gastrointestinal: No abdominal pain, No diarrhea, No nausea, No vomiting Musculoskeletal: joint swelling, muscle pain Skin: other (Bruising) (ADRIANA ALCALA) All Other Systems Reviewed Negative Unless Noted: Yes (ADRIANA ALCALA) Past Lwgenlc-Ccewjn-Qcjibq Hx Patient Social History Tobacco Use?: No Substance use?: No Alcohol Use?: No Pt feels they are or have been: No (ADRIANA ALCALA) Immunizations Up To Date Tetanus Booster (TDap): Unknown (ADRIANA ALCALA) Seasonal Allergies Seasonal Allergies: Yes (ADRIANA ALCALA) Past Medical History Surgery/Hospitalization HX: heart cath no stents Surgeries: Yes (R/L Rototar Cuff, Hemorrhoids Removed, Kidney Stone ) Gallbladder, Orthopedic, Renal Respiratory: Yes (c pap machine) Sleep Apnea Currently Using CPAP: Yes Cardiac: No Coronary Artery Disease Neurological: No Reproductive Disorders: No Sexually Transmitted Disease: No HIV/AIDS: No Genitourinary: Yes Kidney Stones Gastrointestinal: Yes Chronic Constipation, Gall Bladder Disease Musculoskeletal: No Endocrine: No HEENT: Yes Glaucoma Loss of Vision: Denies Hearing Impairment: Denies Cancer: No Psychosocial: Yes (CLAUSTROPHOBIA ) Integumentary: No Blood Disorders: No Adverse Reaction/Blood Tranf: No (ADRIANA ALCALA) Family Medical History Asthma G8 SISTER Deafness or hearing loss 19 MOTHER Glaucoma 19 MOTHER Neoplasm 19 FATHER (DAD OF LEUKEMIA ) Thyroid disease 19 MOTHER No Pertinent Family Hx, Cancer (ADRIANA ALCALA) Physical Exam Vital Signs Vital Signs - First Documented 06/15/21 19:55 Temp 37.3 Pulse 57 Resp 16 B/P (MAP) 180/86 (117) Pulse Ox 95 (BABATUNDE SÁNCHEZ MD) Vital Signs Capillary Refill : (ADRIANA ALCALA) Height, Weight, BMI Height: 5'6.00" Weight: 218lbs. 0.0oz. 98.873988po; 33.96 BMI Method:Stated General Appearance: WD/WN, no apparent distress HEENT: PERRL/EOMI, normal ENT inspection, TMs normal, pharynx normal Neck: non-tender, full range of motion, supple, normal inspection Cardiovascular: regular rate, rhythm, no edema, no gallop, no JVD, no murmur Respiratory: chest non-tender, lungs clear, normal breath sounds, no respiratory distress, no accessory muscle use Gastrointestinal: normal bowel sounds, non tender, soft, no organomegaly Back: normal inspection, no CVA tenderness, no vertebral tenderness Legs: bilateral leg non-tender, bilateral leg normal range of motion; right leg ecchymosis Skin: other (Swelling and bruising noted to right thigh, right lower extremity. No specific tenderness. No erythema warmth, purulent drainage) (ADRIANA ALCALA) Progress/Results/Core Measures Results/Orders Medications Given in ED Current Medications Medications Dose Ordered Sig/Ziyad Route Start Time Stop Time Status Last Admin Dose Admin Enoxaparin Sodium 90 mg ONCE ONCE SC 06/15/21 20:15 06/15/21 20:16 DC 06/15/21 20:10 90 MG (BABATUNDE SÁNCHEZ MD) Vital Signs/I&O 06/15/21 06/15/21 19:55 20:31 Temp 37.3 Pulse 57 60 Resp 16 16 B/P (MAP) 180/86 (117) 165/80 Pulse Ox 95 98 (BABATUNDE SÁNCHEZ MD) Departure Communication (PCP) Patient had a cardiac cath performed on 06/09/[address] Colmenares. Had bruising the next day of the right upper leg which i would suspected. Not currently on anticoagulant besides baby aspirin 81mg. Started having swelling in the right leg today. Mild pain with chronic neuropathy right leg. No chest pain or shortness of breath. Dorsalis pedis, posterior tibialis pulse +2 bilateral. He has no left leg pain. No erythema or warmth to suggest infectious of the right leg. Healing surgical site to the right groin without tenderness. Need to rule out DVT postprocedure versus pseudoaneurysm. Ultrasound was ordered outpatient secondary not having ultrasound on at this time. Patient was given a dose of Lovenox. No history of kidney disease. No current chest pain or shortness of breath. Provided outpatient order for the morning. Recommending calling results to his primary care physician or here in the ER to determine further treatment. (ADRIANA ALCALA) Impression Primary Impression: Leg swelling Disposition: HOME, SELF-CARE Condition: Stable Departure-Patient Inst. Decision time for Depature: 20:04 (ADRIANA ALCALA) Referrals: JANET ENCARNACION MD (PCP/Family) Primary Care Physician Patient Instructions: Contusion (DC) ATTENDING PHYSICIAN NOTE: I was physically present as attending physician in the emergency department during the care of this patient, but I was not directly involved in the decision making or delivery of care for this patient. (BABATUNDE SÁNCHEZ MD) ADRIANA ALCALA June 15, 2021 20:05 BABATUNDE SÁNCHEZ MD June 16, 2021 05:20
[2021-06-15] MEDS ORDERED: ENOXAPARIN 100 MG/1 ML (LOVENOX) SYR SC ONE (20:15)
[2021-06-15] MEDS ORDERED: ENOXAPARIN 100 MG/1 ML (LOVENOX) SYR ONE (20:15)
[2021-06-15 20:31] VITALS: BP 165/80
== END 2021-06-15 20:31 | disposition home or self-care (01) ==
LOC: EDUNIT# 18:44 → ER 18:47
DX: M79.89 Other specified soft tissue disorders (principal); M79.81 Nontraumatic hematoma of soft tissue; G62.89 Other specified polyneuropathies; Z95.9 Presence of cardiac and vascular implant and graft, unspecified; Z79.82 Long term (current) use of aspirin
CPT/HCPCS: 99281

== ENCOUNTER → 2021-06-16 | Outpatient (CLI) | payer MEDICARE, OTHER ==
--- NOTE | 2021-06-16 10:30 | Diagnostic Imaging Report ---
PROCEDURE: US right lower extremity venous. TECHNIQUE: Multiple real-time grayscale images were obtained over the right lower extremity in various projections. Additional spectral analysis and color Doppler duplex images were also obtained. INDICATION: Localized edema. COMPARISON: Imaging from the same date FINDINGS: Normal flow, compression, and augmentation within the visualized deep venous structures of the right lower extremity. IMPRESSION: No evidence of a deep venous thrombosis within the right lower extremity. Dictated by: Dictated on workstation # [id number]
--- NOTE | 2021-06-16 10:35 | Diagnostic Imaging Report ---
INDICATION: Localized edema COMPARISON: Imaging from the same date TECHNIQUE: Right lower extremity arterial Doppler duplex ultrasound performed on 06/16/2021 FINDINGS: Triphasic and biphasic waveforms are identified within the right common femoral artery extending through the right popliteal artery. These waveforms maintain their normal brisk upstroke. No focal pseudoaneurysm identified. No focal fluid collection. Predominantly monophasic waveforms are identified within the right dorsalis pedis artery, right anterior tibial artery with triphasic waveforms noted within the right posterior tibial artery. IMPRESSION: Underlying tibioperitoneal atherosclerotic disease with monophasic waveforms noted within the right anterior tibial artery and right dorsalis pedis artery. No evidence of pseudoaneurysm or arteriovenous fistula. Dictated by: Dictated on workstation # [id number]
== END ==
LOC: RAD 09:32
PROVIDERS: ATTEND Nurse Practitioner Family
DX: I70.201 Unspecified atherosclerosis of native arteries of extremities, right leg (principal)
CPT/HCPCS: 93926

== ENCOUNTER → 2021-09-15 | Outpatient (CLI) | payer MEDICARE, OTHER ==
--- NOTE | 2021-09-15 10:55 | Diagnostic Imaging Report ---
PROCEDURE: CT abdomen and pelvis without contrast. TECHNIQUE: Multiple contiguous axial images were obtained through the abdomen and pelvis without the use of intravenous contrast. Auto Exposure Controls were utilized during the CT exam to meet ALARA standards for radiation dose reduction. INDICATION: Back pain. Compared with abdominal pelvic CT 12/17/2015 and correlated with overlapped images during a chest CT 02/12/2020. FINDINGS: There are adjacent nonobstructing stones within the left renal lower pole calyx and aggregate measuring 6.2 mm in long axis. This patient has chronic left greater than right renal parapelvic cysts but no mela hydroureteronephrosis. The previous left perinephric edema has resolved, no perinephric or periureteric inflammatory changes are found at today's exam. Some exophytic cortical nodularity bilaterally stable from prior, incompletely characterized owing to the absence of contrast but favored to reflect chronic small cysts. The unopacified urinary bladder unremarkable, the prostate is not enlarged, seminal vesicles normal, no perivesical edema. The appendix air-containing and normal. There is no diverticulitis, aorta is nonaneurysmal. Gallbladder surgically absent, chronic hepatic cysts stable. Spleen, adrenals and pancreas unremarkable. There is extensive mesenteric atherosclerotic vascular calcifications chronic. There is no ileus or bowel obstruction. No ascites, abscess, hematoma or acute fluid collection. IMPRESSION: 1. Chronic renal parapelvic cysts with no hydroureteronephrosis, nonobstructing intrarenal left calculus, no opaque ureteral or bladder stone. 2. Additional chronic findings as described, no acute-appearing abnormality identified. Dictated by: Dictated on workstation # [id number]
== END ==
LOC: RAD 10:15
PROVIDERS: ATTEND Urology
DX: N20.0 Calculus of kidney (principal); N28.1 Cyst of kidney, acquired
CPT/HCPCS: 74176

== ENCOUNTER 2022-01-12 08:39 | Outpatient (RCR) | payer MEDICARE, OTHER | END 2022-01-13 | disposition still patient (30) | PROVIDERS: ATTEND Orthopaedic Surgery | DX: M75.121 Complete rotator cuff tear or rupture of right shoulder, not specified as traumatic (principal) ==

== ENCOUNTER 2022-02-04 13:31 | Outpatient (RCR) | payer MEDICARE, OTHER | END 2022-02-13 | disposition home or self-care (01) | PROVIDERS: ATTEND Orthopaedic Surgery | DX: M75.121 Complete rotator cuff tear or rupture of right shoulder, not specified as traumatic (principal); M62.81 Muscle weakness (generalized); Z73.6 Limitation of activities due to disability ==

== ENCOUNTER → 2022-02-04 | Outpatient (CLI) | payer MEDICARE, OTHER ==
[~2022-02-04] MED LIST changes: +CLOP-31 PO; -CLOP75TA69 PO
--- NOTE | 2022-02-04 13:23 | Diagnostic Imaging Report ---
PROCEDURE: US carotid duplex, bilateral. TECHNIQUE: Multiple real-time grayscale images were obtained over the carotid arteries in various projections, bilaterally. Additional spectral analysis and color Doppler duplex images were also obtained. INDICATION: Amaurosis fugax. No relevant comparison. FINDINGS: Grayscale imaging demonstrates mild calcific plaquing at the carotid bifurcations. Morphology of the waveforms within the common and internal carotid arteries are normal. There are no findings of abnormal elevation of the peak systolic velocities. The ICA/CCA ratios are normal bilaterally. There is antegrade flow within both the vertebral arteries. IMPRESSION: 1. Mild plaquing at the carotid bifurcations without sonographic criteria of a hemodynamically significant carotid artery stenosis. 2. Preservation of antegrade flow in both vertebral arteries. Parameters based on the consensus panel Hudson-Scale and Doppler ultrasound criteria published December 2002, Radiology, Volume 229. DOPPLER (peak systolic velocity M/S Right Left CCA .50 .56 ICA Proximal .27 .31 ICA Mid .40 .28 ICA Distal .34 .32 RATIO .79 .56 ECA .64 .77 VERT .20 .21 Dictated by: Dictated on workstation # [id number]
== END ==
LOC: CARD 13:00
PROVIDERS: ATTEND Specialist
DX: I65.23 Occlusion and stenosis of bilateral carotid arteries (principal)
CPT/HCPCS: 93880; C8929; 93306

== ENCOUNTER 2022-03-11 13:45 | Outpatient (RCR) | payer MEDICARE, OTHER | END 2022-03-16 | disposition home or self-care (01) | PROVIDERS: ATTEND Physician Assistant | DX: M75.121 Complete rotator cuff tear or rupture of right shoulder, not specified as traumatic (principal); M62.81 Muscle weakness (generalized); Z73.6 Limitation of activities due to disability ==

== ENCOUNTER → 2022-03-15 | Outpatient (CLI) | payer MEDICARE, OTHER ==
--- NOTE | 2022-03-15 12:17 | Diagnostic Imaging Report ---
PROCEDURE: US right lower extremity venous. TECHNIQUE: Multiple real-time grayscale images were obtained over the right lower extremity in various projections. Additional spectral analysis and color Doppler duplex images were also obtained. INDICATION: Right leg pain and swelling x4 days. FINDINGS: There is lack of compressibility in the common and superficial femoral vein. The popliteal artery and calf veins appear to be occluded. IMPRESSION: Extensive deep vein thrombosis in the right leg with partially occluding thrombus in the common femoral vein and occluding thrombus in the proximal superficial femoral vein through the calf veins. Provider was notified of findings at time of exam. Dictated by: Dictated on workstation # [id number]
== END ==
LOC: RAD 11:24
PROVIDERS: ATTEND Internal Medicine
DX: I82.401 Acute embolism and thrombosis of unspecified deep veins of right lower extremity (principal)

== ENCOUNTER → 2022-05-19 | Outpatient (CLI) | payer MEDICARE, OTHER ==
--- NOTE | 2022-05-19 09:21 | Diagnostic Imaging Report ---
Indication: Right leg pain, history of deep vein thrombosis. Right leg venous Doppler study performed in the routine fashion with color flow Doppler and waveform analysis. Comparison made to prior study of 03/15/2022. The right common femoral vein and profunda femoris vein are patent. The right proximal SFV is patent. There is thrombus in the mid superficial femoral vein and popliteal vein extending the calf veins, likely chronic compared to the previous study. IMPRESSION: Compared to the prior study, thrombus persists in the right mid to distal SFV and popliteal vein and calf veins with patency seen in the proximal SFV and common femoral vein and profunda. Dictated by: Dictated on workstation # [id number]
== END ==
LOC: RAD 07:27
PROVIDERS: ATTEND Internal Medicine Cardiovascular Disease
DX: I82.431 Acute embolism and thrombosis of right popliteal vein (principal); I82.4Z1 Acute embolism and thrombosis of unspecified deep veins of right distal lower extremity

== ENCOUNTER 2022-07-08 12:34 | Outpatient (RCR) | payer MEDICARE, OTHER | END 2022-07-14 | disposition home or self-care (01) | PROVIDERS: ATTEND Internal Medicine | DX: M54.89 Other dorsalgia (principal) ==

== ENCOUNTER → 2022-07-15 | Outpatient (CLI) | payer MEDICARE, OTHER ==
--- NOTE | 2022-07-15 14:04 | Diagnostic Imaging Report ---
PROCEDURE: CT head without contrast. TECHNIQUE: Multiple contiguous axial images were obtained through the brain without the use of intravenous contrast. Auto Exposure Controls were utilized during the CT exam to meet ALARA standards for radiation dose reduction. INDICATION: Headache after trauma. COMPARISON: 10/03/2016. FINDINGS: No intracranial hyperdense hemorrhage or space-occupying mass. No hydrocephalus or midline shift. Hudson-white matter differentiation is well-preserved. No skull fracture. Paranasal sinuses and mastoid air cells are clear. IMPRESSION: No acute intracranial process by CT. Dictated by: Dictated on workstation # [id number]
== END ==
LOC: RAD 13:37
PROVIDERS: ATTEND Internal Medicine
DX: G44.309 Post-traumatic headache, unspecified, not intractable (principal)
CPT/HCPCS: 70450

== ENCOUNTER 2022-07-29 13:17 | Outpatient (RCR) | payer MEDICARE, OTHER | END 2022-08-13 | disposition home or self-care (01) | PROVIDERS: ATTEND Internal Medicine | DX: M54.2 Cervicalgia (principal); M54.50 Low back pain, unspecified ==

== ENCOUNTER 2022-09-07 12:31 | Outpatient (RCR) | payer MEDICARE, OTHER | END 2022-09-13 | disposition home or self-care (01) | PROVIDERS: ATTEND Internal Medicine | DX: M54.2 Cervicalgia (principal); M54.50 Low back pain, unspecified ==

== ENCOUNTER 2022-10-13 09:29 | Outpatient (RCR) | payer MEDICARE, OTHER | END 2022-10-14 | disposition home or self-care (01) | PROVIDERS: ATTEND Internal Medicine | DX: M54.2 Cervicalgia (principal); M54.50 Low back pain, unspecified ==

== ENCOUNTER 2022-12-08 13:35 | Outpatient (RCR) | payer MEDICARE, OTHER ==
[~2022-12-08 13:35] MED LIST changes: -MECL-149 PO; +MECL-291 PO
== END 2022-12-14 | disposition home or self-care (01) ==
PROVIDERS: ATTEND Internal Medicine
DX: M54.2 Cervicalgia (principal); M54.50 Low back pain, unspecified

== ENCOUNTER 2023-01-03 10:47 | Outpatient (RCR) | payer MEDICARE, OTHER | END 2023-01-13 | disposition home or self-care (01) | PROVIDERS: ATTEND Internal Medicine | DX: M54.2 Cervicalgia (principal); M54.50 Low back pain, unspecified ==